=== PATIENT | male | born 1945 | race Caucasian/White ===

== ENCOUNTER 2018-10-07 02:46 | Day surgery (SDC) | payer OTHER ==
[2018-10-06 14:19] LABS: PLATELET COUNT, AUTOMATED 265 K/uL (150-450)
[~2018-10-07] VITALS: Ht 172.7 cm; Wt 82.1 kg
[~2018-10-07 02:46] MED LIST: HYDR12.558 PO
[2018-10-07 06:25] VITALS: BP 131/82
[2018-10-07] MEDS ORDERED: FAMOTIDINE 20 MG TAB PO ONE (06:45)
[2018-10-07] MEDS ORDERED: LIDOCAINE/SOD BICARB 8.4% SYR ID ONE (06:45)
[2018-10-07] MEDS ORDERED: ceFAZolin(*) 2GM/D5W 50ML 50 ML IVPB ONE (06:45)
[2018-10-07] MEDS ORDERED: NORMOSOL R SOLN(*) 1000 ML BAG 1,000 ML IV PRN (06:45)
[2018-10-07] MEDS ORDERED: MIDAZOLAM 2 MG/2 ML VIAL IVP PRN (06:45)
[2018-10-07] MEDS ORDERED: DEXAMETHASONE SOD PHOS 10MG/ML ONE (07:32)
[2018-10-07] MEDS ORDERED: ROCURONIUM BROM 10 MG/ML 10 ML ONE (07:32)
[2018-10-07] MEDS ORDERED: LIDOCAINE MPF 1% 5 ML VIAL ONE (07:32)
[2018-10-07] MEDS ORDERED: PROPOFOL EMUL(*) 10MG/ML 20 ML 20 ML ONE (07:32)
[2018-10-07] MEDS ORDERED: ONDANSETRON 4 MG/2 ML VIAL ONE (07:32)
[2018-10-07] MEDS ORDERED: KETAMINE HCL-NS 50 MG/5 ML SYR ONE (07:35)
[2018-10-07] MEDS ORDERED: fentaNYL CITR 100 MCG/2 ML AMP ONE (07:35)
[2018-10-07] MEDS ORDERED: MIDAZOLAM 2 MG/2 ML VIAL ONE (07:35)
[2018-10-07] MEDS ORDERED: LIDOCAINE MPF 4% 200MG/5ML AMP ONE (07:35)
[2018-10-07] MEDS ORDERED: LIDOCAINE 2% VISC SLN 15ML UDC ONE (07:35)
[2018-10-07] MEDS ORDERED: LIDOCAINE MPF 4% 200MG/5ML AMP INH ONE (07:45)
[2018-10-07] MEDS ORDERED: ROPIVACAINE 0.5% 20 ML VIAL ONE (07:47)
[2018-10-07] MEDS ORDERED: HEPARIN SOD LCK FLSH 100 UN/ML ONE (07:47)
[2018-10-07] MEDS ORDERED: NS(*) 0.9% 10 ML VIAL 20 ML ONE (07:47)
[2018-10-07] MEDS ORDERED: NS(*) 0.9% 100 ML BAG 100 ML ONE (08:34)
--- NOTE | 2018-10-07 10:05 | Short(Outpt) Discharge Summary ---
Discharge Summary Reason for Hosp/Final Diag: (1) MALIGNANT NEOPLASM OF TONSIL, UNSPECIFIED Status: Chronic Hospital Course & Plan: Right IJ Power Port placement and PEG tube placement completed without problems. Departure Discharge to: Home, Self Care Discharge Instructions Home Meds No Active Prescriptions or Reported Meds Follow up Referrals: General Surgery - 10/19/18 @ Surgery, General with CASSIA COREAS MD You have a follow up appointment scheduled with Dr. Coreas on 10/19/18, at 4:00pm. Diet: Regular Activity: As Tolerated Special Instructions: You may remove the dressings from the port placement sites and the feeding tube site and shower starting on 10/09/18. After showering, place a new drain dressing around the feeding tube but you can leave the incisions on the port placement sites open to air but leave the steristrips in place until they fall off on their own. Do not immerse the incisions for 2 weeks. The feeding tube needs to be flushed with 60mL of water once a day to keep it from getting clogged. You can use the pain medications prescribed after your throat surgery if you need anything for pain. Take an over the counter stool softener such as colace, twice each day, until your bowel movements are normal. CASSIA COREAS MD Oct 07, 2018 10:05
--- NOTE | 2018-10-07 10:11 | Post Operative Progress Note ---
Post Operative Progress Note Date: Oct 07, 2018 Time: 10:05 Surgeon: Ishmael Dictation number: [id number] Anesthesia: GETA by Dr. Price Pre-Op Diagnosis: Oral cancer Post-Op Diagnosis: TRISTEN Findings: None Procedure(s): Right IJ Power Port placement PEG tube placement Specimen Removed:(May be N/A): None Complications: None Fluids: See anesthesia record Estimated Blood Loss: Minimal Date OP Note Dictated: Oct 07, 2018 Time OP Note Dictated: 10:06 CASSIA COREAS MD Oct 07, 2018 10:11
[2018-10-07 10:30] VITALS: BP 116/67
--- NOTE | 2018-10-07 10:43 | RADIOLOGY IMAGING REPORT ---
FACILITY: [facility] PATIENT NAME: Dat Bhatti : 1945 MR: [id number] V: [id number] EXAM DATE: [id number] ORDERING PHYSICIAN: CASSIA COREAS TECHNOLOGIST: Location: [facility] Patient: Dat Bhatti : 1945 Visit/Account:[id number] Date of Sevice: 10/07/2018 Exam type: CHEST SINGLE AP History: Right IJ Power port placement, PEG placement Comparison: None. Findings: There is a right IJ implanted port the distal tip projects over the caval atrial junction. No eviden ce of pneumothorax Coarse linear stranding left lung base may represent atelectasis versus scarring. Mildly prominent central pulmonary arteries are present. There is mild interstitial prominence whi ch could be related to a poor inspiratory effort. Cardiac silhouette appears normal in size IMPRESSION: 1. Right IJ implanted port distal tip projects over the cavoatrial junction. No evidence of pneumot horax Coarse linear stranding the left lung base may represent atelectasis versus scarring Report Dictated By: Gwen James MD at 10/07/2018 10:35 AM Report E-Signed By: Gwen James MD at 10/07/2018 10:39 AM WSN:[email or web address]
[2018-10-07 11:00] VITALS: BP 119/79
--- NOTE | 2018-10-07 11:06 | OPERATIVE REPORT 1 ---
EVENT DATE: October 07, 2018 SURGEON: Jose Quiñones MD ANESTHESIOLOGIST: Oumar Price MD ANESTHESIA: General endotracheal. PREOPERATIVE DIAGNOSIS Oral cancer. POSTOPERATIVE DIAGNOSIS Oral cancer. PROCEDURE PERFORMED 1. Right IGA PowerPort placement. 2. PEG tube placement. COMPLICATIONS None. CONDITION Stable. ESTIMATED BLOOD LOSS Minimal. INDICATIONS This is a 73-year-old gentleman who was recently found to have an oral cancer, I think arising from his left tonsil and possibly the base of his tongue. He had debulking procedure in [place] and has recently seen our oncologist here who would like to start him on radiation and chemotherapy, and have asked for a PowerPort and PEG tube to be placed. DESCRIPTION OF PROCEDURE The patient was brought to the operating room and placed supine on the operating table. General endotracheal anesthesia was administered and his right chest, shoulder, and neck were prepped and draped in sterile fashion. A timeout was completed. With the patient in Trendelenburg, we used the ultrasound to identify the internal jugular vein. I accessed the vein with the needle with no problem and threaded the wire through the needle. Initially, the wire wanted to head cephalad but under fluoroscopic guidance, I was able to withdraw it and then advance it into the SVC. I removed the needle and once I confirmed the wire was in the appropriate position, I anesthetized the skin of the neck and the right infraclavicular skin with 0.5% Ropivacaine plain and then made a stab incision in the neck where the wire entered the skin and I made a transverse incision to accommodate the port. I dissected through the dermis and subcutaneous fat and then caudad to the incision creating a nice pocket for the port and made sure this was hemostatic. I used a tunneler and dragged the catheter from the pocket up to the stab incision in the neck and then with the patient in Trendelenburg, threaded the dilator and sheath over the wire, removed the dilator and wire and threaded the catheter through the sheath and removed the sheath. Next, under fluoroscopic guidance, I backed the catheter back so the tip was in the SVC just below the right atrium. I cut the catheter length, placed the port on the catheter, locked it into place with the locking cuff and then sutured the port to the muscle fascia with 2-0 Nylon at the corners. I then aspirated blood and flushed the catheter and port with 10 mm of normal saline and then I flushed it with 5 mL. of 100 units/mL of Heparinated saline. It aspirated and flushed with no problems. I took more C-arm images to confirm good position and then I closed the stab incision in the neck with a single 3-0 Chromic suture and then closed the infraclavicular incision with interrupted 3-0 Vicryl deep dermal sutures and 4-0 Monocryl running subcuticular suture. The skin was cleaned, dried, and Steri-Strips were applied, followed by sterile, surgical dressings. I then took the drapes down and covered this area with a 1010 drape to prevent any soilage during the net part of the procedure. The endoscope was then set up and tested to assure it was completely functional. I inserted it into the patient's mouth, I advanced into the esophagus without any problems and then I grossly inspected the stomach and duodenum as well as the esophagus. He does have evidence of gastritis. No other abnormalities were found. I transilluminated the abdominal wall, through the stomach with the scope and identified a good location for the PEG tube. I then anesthetized the skin here and then used the access needle and catheter and penetrated the stomach under direct visualization. I removed the needle and then threaded the wire through the angiocatheter and then pulled it from the stomach, though the patient's mouth with the loop. I then attached the pole type Ponsky tube to the wire, and made an incision in the skin in the abdomen where the wire exited, and then pulled the feeding tube through the patient's mouth and through the stomach wall. I then put the scope back in and then positioned the mushroom cap against the stomach wall but so there was no pressure on the wall. I then cut the tube to length and placed the flange and the clamp on the catheter followed by the port. I then sewed the flange down to the skin with 2-0 Silk sutures. I then placed a drain dressing around this which was taped into placed. The patient tolerated both of these procedures without any apparent problems. He was awakened and extubated in the operating room and transferred to the recovery room in stable condition. BLADIMIR
[2018-10-07 11:30] VITALS: BP 124/83
[2018-10-07 12:04] VITALS: BP 135/86
[2018-10-07 12:07] VITALS: BP 113/92
--- NOTE | 2018-10-07 13:42 | RADIOLOGY IMAGING REPORT ---
FACILITY: [facility] PATIENT NAME: Dat Bhatti : 1945 MR: [id number] V: [id number] EXAM DATE: ORDERING PHYSICIAN: CASSIA COREAS TECHNOLOGIST: Location: [facility] Patient: Dat Bhatti : 1945 Visit/Account:[id number] Date of Sevice: 10/07/2018 OR fluoroscopy films: Chest History: Port placement Comparison:None Findings: Fluoroscopy and imaging was provided for Dr. Coreas. 35.3 seconds of fluoroscopy time was utilized for a DAP of 1.26 Gycm2. 2 images of the chest are archived to PACS which demonstrate chest port placement in progress. Catheter tip projects over the distal cavoatrial junction.. IMPRESSION: Fluoroscopy and imaging provided for Dr. Coreas please see his report for details. Report Dictated By: Shayla Cline MD at 10/07/2018 12:18 PM Report E-Signed By: Shayla Cline MD at 10/07/2018 1:38 PM WSN:[id number]
== END 2018-10-07 10:30 | disposition home or self-care (01) ==
LOC: OR 02:46
PROVIDERS: ATTEND Surgery
DX: C06.9 Malignant neoplasm of mouth, unspecified (principal)
CPT/HCPCS: 36415; 36561; 43246; 71045; 77001; 85025; 94640; 94667; C1788; J1100; J2001; J2250; J2405; J2704; J2795; J3010; J3490; J7050; J0690

== ENCOUNTER → 2018-10-08 | Outpatient (CLI) | payer OTHER | LOC: AUD 10-06 13:42 | PROVIDERS: ATTEND Internal Medicine Medical Oncology | DX: C09.9 Malignant neoplasm of tonsil, unspecified (principal) | CPT/HCPCS: 92552 ==

== ENCOUNTER 2018-12-03 09:00 | Outpatient (RCR) | payer OTHER ==
--- NOTE | 2018-09-28 20:43 | TOBIN CONSULT ---
EVENT DATE: September 28, 2018 CHIEF COMPLAINT Patient is here for oncology assessment and treatment recommendations. 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 There was additional tumor appreciated on PET CT scan extending from the right tonsil fossa along the right base of tongue, measuring 1.7 cm with a standardized uptake value of 12.3, however, metabolic lymph nodes at level 2, level 3, level 4, and level 5. Appears to be two supraclavicular fossa lymph nodes as well at the right neck base. 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 Stage T4a N3b M0 (CAROL). HISTORY This is a 73-year-old gentleman who [place] [facility] [place] for newly diagnosed squamous cell carcinoma of the oropharynx. Patient is seen with his spouse today. Patient is referred from to me by Lorena Jones and Dr. Alex Vaz. Patient has significant short-term memory deficit. This appears to be related to PTSD. He relates [place] exposure in the past. He is a nonsmoker. According to the patient and his spouse, he presented to his primary care providers with a palpable lymph node at the base of the right neck posteriorly. This was nontender. The patient subsequently underwent diagnostic evaluation. He initially had a CT scan of the neck on 09/07/18. That study revealed a 3.1 x 2.2 cm mass in the posterior oropharynx with multiple enlarged lymph nodes along the right neck up to 1.1 cm. He also had a right intra-parotid lymph node. Patient was referred to Dr. Vaz. I do not have the office notes; however, according to the patient, he was advised to have biopsy of the right tonsil, and the mass was subsequently removed on 09/10/18. Mass was measuring 3.5 cm on histologic evaluation with extension to deep margins. No LVI or perineural invasion. The procedure was performed approximately four weeks ago, and the patient is recovering nicely on schedule. As part of the diagnostic evaluation, the patient also had a PET CT scan performed in [place] on 09/21/18. The study reveals a hypermetabolic mass in right base of tongue measuring 1.7 cm with an SUV of 12.3. There is a hypermetabolic right intra-parotid lymph node with an SUV of 7.6. There are additional lymph nodes noted along the jugular chain both anteriorly and posteriorly, and the lymph nodes extend to the right supraclavicular fossa. Left neck was unremarkable. Lungs and mediastinum were negative for uptake. Patient is seen for initial assessment. MEDICATIONS AND ALLERGIES See EMR. PAST MEDICAL HISTORY 1. Squamous cell carcinoma of the oropharynx. 2. PTSD. 3. Hyperlipidemia. SOCIAL HISTORY Patient is , seen with spouse, Adelaida Rocha. 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 Retired about three years ago. Nonsmoker as stated above. FAMILY HISTORY Notable for a sister with lung carcinoma. She is doing well at this time. Mother had CVA. He has a brother and a son. The latter is age 47. REVIEW OF SYSTEMS Patient denies any significant weight loss. He is presently not experiencing any dysphagia. Denies any ear pain. No respiratory complaints. No GI complaints. No focal neurologic deficits. He is aware of the fact that he has short-term memory loss. PHYSICAL EXAMINATION GENERAL: Pleasant, 73-year-old male with medium build. VITALS: BP 129/83, pulse 55, respirations 16, O2 sat 97%. Weight 186. HEENT: Notable for pale mucosa over the base of the right tonsil from recent surgery. Good dentition. Reasonably good moisture. No visible lesions of the oral tongue. There is an exophytic mass that could be identified on direct visualization of the posterior oropharynx on the right side. Fiberoptic exam will be listed at the end of the dictation to describe this further. NECK: Notable for palpable mobile, 1 cm lymph node at the posterior triangle at the base of the neck. There is palpable fullness along the sternocleidomastoid muscle on the right neck, but no dominant mass towards the surface. Left neck exam was unremarkable. LUNGS: Clear bilaterally. HEART: Sounds regular. No audible murmur. ABDOMEN: Soft. No gross organomegaly, mass, or tenderness. NEUROLOGIC: Grossly intact with exception of significant memory deficit. PROCEDURE Fiberoptic exam was performed with topical anesthesia of the right posterior nasopharynx. The nasopharynx was unremarkable. The posterior oropharynx was notable for visualization of a large exophytic mass which visibly measures approximately 2.5 cm x 1.5 x 1.5 cm. This appears along the base of the tongue and the lateral oropharynx. I suspect this is direct extension of the primary tumor mass, although secondary tumor would also be a consideration. The tumor mass extends to base of the epiglottis and ventricle on the right side. The epiglottis itself was smooth, and vocal cords moved symmetrically. Air column was open widely. Digital photographs placed in chart for reference. 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 He appeared to have a dominant mass in the right tonsil which was confirmed to be squamous cell carcinoma 3.[address] scan and visualization, he has a secondary tumor mass which extends along the right base of tongue. The clinical size is estimated in vertical length at approximately 2.5 cm x 1.5 x 1.5 cm with a multinodular appearance. There appears to be numerous lymph nodes throughout the right anterior neck at levels 2 through 5 with two visible lymph nodes in the supraclavicular fossa which would represent N3 disease. He has a fairly large palpable lymph node in the right posterior neck which will be monitored for therapeutic response during his radiation and chemotherapy program. RECOMMENDATIONS At this time, I would recommend external beam radiotherapy with IMRT with progressive field reductions to approximately 72 to 76 Gy. I would proceed at 1.8 Gy per fraction with field reductions at 50 Gy and 68 Gy. I reviewed the initial imaging with the patient and his spouse on the monitor. I discussed the natural history of this carcinoma, which is locally aggressive. The patient has an appointment to see Dr. Jordan Thursday of this week for medical oncology recommendations. We have had reasonably good success with tumor control of the larger lesions with combined radiation therapy and cisplatin. Expected toxicities include acute mucosal reaction, xerostomia, altered taste, and temporary skin reaction. Late side effects may include thyroid suppression which requires supplementation. Patients may require IV hydration towards the second half of the treatment program. Nutrition will be monitored closely throughout the program. I would like to proceed with CT simulation and fabrication of an Aquaplast mask within the next five days. I will request a PET CT disk from [place] to fuse our treatment planning images for accurate targeting. Treatments will proceed forward in approximately 10 to 14 days. Overall, tumor control for HPV-mediated squamous cell carcinoma is typically on the order of 80% to 85% at two to three years. The tumors, fortunately, may respond quickly to therapy. All questions were answered to the patient's and his spouse's satisfaction today, and signed consent obtained to proceed with treatment. Thank you for the referral and confidence in our Cancer Center. BLADIMIR
--- NOTE | 2018-10-11 14:03 | NUR ---
SW completed initial assessment.
--- NOTE | 2018-10-11 14:04 | NUR ---
SW will complete a Mini-cog (MoCA) at next meeting to get baseline cognitive assessment.
--- NOTE | 2018-10-11 14:06 | NUR ---
HADS scores: D-0, A-0. ( assisted patient with completion of form).
--- NOTE | 2018-11-04 16:05 | RADIOLOGY IMAGING REPORT ---
FACILITY: [facility] PATIENT NAME: Dat Bhatti : 1945 MR: [id number] V: [id number] EXAM DATE: ORDERING PHYSICIAN: DAMON THOMASON TECHNOLOGIST: [place] [facility] [place] Dat B[place] : 1945 Visit/Account:[id number] Date of Sevice: 11/04/2018 CT BRAIN WITH AND WITHOUT INDICATION: Tonsillar cancer, radiation therapy planning COMPARISON: None TECHNIQUE: Pre and postcontrast head CT performed with sagittal and coronal reformations. 75 mL Isov ue-370 injected. One of the following dose optimization techniques was utilized in the performance o f this exam: automated exposure control; adjustment of the mA and/or kV according to patient size; or use of iterative reconstruction technique. Specific details can be referenced in the facility's rad iology CT exam operational policy. FINDINGS: The basal cisterns, moreno-white differentiation and convexity sulci are maintained. No intracranial h emorrhage, hydrocephalus or midline shift. Normal orbital soft tissues. Mild to moderate patchy whi te matter hypoattenuation. Clear mastoid air cells, clear paranasal sinuses and normal osseous struc tures. No apparent intracranial pathologic enhancement. No apparent vascular abnormality. IMPRESSION: 1. Mild to moderate chronic small vessel ischemic change. 2. Otherwise normal head CT without and with contrast. Report Dictated By: Melchor Young MD at 11/04/2018 3:54 PM Report E-Signed By: Melchor Young MD at 11/04/2018 4:00 PM [id number]
--- NOTE | 2018-11-04 16:14 | RADIOLOGY IMAGING REPORT ---
FACILITY: [facility] PATIENT NAME: Dat Bhatti : 1945 MR: [id number] V: [id number] EXAM DATE: ORDERING PHYSICIAN: DAMON THOMASON TECHNOLOGIST: Location: [facility] Patient: Dat Bhatti : 1945 Visit/Account:[id number] Date of Sevice: 11/04/2018 CT SOFT TISSUE NECK W & W/O CON INDICATION: Tonsillar cancer, radiation therapy planning COMPARISON: None TECHNIQUE: Pre and postcontrast neck CT performed with sagittal and coronal reformations. 75 mL Isov ue-370 injected. One of the following dose optimization techniques was utilized in the performance o f this exam: automated exposure control; adjustment of the mA and/or kV according to patient size; or use of iterative reconstruction technique. Specific details can be referenced in the facility's rad iology CT exam operational policy. FINDINGS: Normal parotid and submandibular glands. Normal thyroid gland. No apparent tonsillar mass. Normal oral cavity, retropharyngeal, pharyngeal and laryngeal region sof t tissues. No enlarged or suspicious appearing neck lymph nodes. Normal orbital soft tissues. No apparent path ologic enhancement in the visualized intracranial compartment. Right chest wall port with catheter tip in the lower SVC is noted. A large portion of the chest was imaged. No enlarged lymph nodes seen in the chest. The visible lungs are clear. No osseous metastatic disease identified. Severe multilevel cervical spine disc space degeneration n oted. IMPRESSION: No apparent neck mass. No enlarged or suspicious appearing neck lymph nodes. Report Dictated By: Melchor Young MD at 11/04/2018 4:00 PM Report E-Signed By: Melchor Young MD at 11/04/2018 4:09 PM [id number]
[~2018-12-03 09:00] MED LIST changes: +FLUC100T39 PO; +IOPAMIDOL 76% 75 ML INFUS BTL 75 ML ONE
== END 2018-12-26 ==
LOC: RAON 09:00
PROVIDERS: ATTEND Radiology Radiation Oncology
DX: Z51.11 Encounter for antineoplastic chemotherapy (principal); C09.1 Malignant neoplasm of tonsillar pillar (anterior) (posterior); Z90.89 Acquired absence of other organs; Z77.098 Contact with and (suspected) exposure to other hazardous, chiefly nonmedicinal, chemicals; G31.84 Mild cognitive impairment of uncertain or unknown etiology; E78.5 Hyperlipidemia, unspecified
CPT/HCPCS: 70470; 70492; 77280; 77290; 77300; 77301; 77336; 77338; 77386; 99212; Q9967; 77334

== ENCOUNTER 2018-12-27 08:30 | Outpatient (RCR) | payer OTHER ==
[2018-09-29 16:05] VITALS: BP 120/79
--- NOTE | 2018-10-07 00:25 | ONCOLOGY HISTORY AND PHYSICAL ---
EVENT DATE: September 29, 2018 REFERRING PROVIDER Sai De Oliveira MD, Radiology Oncology. REASON FOR CONSULTATION Squamous cell carcinoma of the right tonsil, stage CAROL. CHIEF COMPLAINT Lump in right neck. HISTORY OF PRESENT ILLNESS Mr. Bhatti is here with his today. The patient is able to give some history, but history provided is regularly interrupted with discussion of several episodes, some traumatic, that occurred while he was in [place]. The patient does seem to rely fairly heavily on his for pertinent recent history. In any case, to review, he had presented about one month ago with a palpable lymph node in his right neck. He underwent a CT scan of the neck on September 07. This showed a 3.1 x 2.2 cm mass in the posterior oropharynx with multiple enlarged lymph nodes along the right neck, up to 1.1 cm. There was reportedly a right intraparotid lymph node, as well. The patient was seen in ENT by Dr. Vaz. He underwent tonsillectomy on September 10. Surgical pathology revealed a 3.5 cm primary with extension to the margins, but with no lymphovascular or perineural invasion. 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 Patient has recovered nicely from his surgery. He underwent a CT/PET scan in [place] on September 21. PET scan reveals a hypermetabolic mass in the right base of tongue measuring 1.7 cm with SUV of 12.3. There was a hypermetabolic right intraparotid lymph node with an SUV of 7.6. There were additional lymph nodes along the jugular chain anteriorly and posteriorly, and the lymph nodes extend to the right supraclavicular fossa. There were no pertinent findings in the left neck. There was no evidence of hypermetabolic metastatic disease. The patient has visited already with Dr. De Oliveira in Radiation Oncology. The plan is tentatively set for concurrent cisplatin and radiation therapy. PAST MEDICAL HISTORY 1. Squamous cell carcinoma of oropharynx, as above. 2. Reported PTSD. 3. Memory loss, as evidenced by today's visit, but no dementia diagnosis as yet to my knowledge. 4. Hyperlipidemia. CURRENT MEDICATIONS Reviewed per the [employer] record. ALLERGIES No known drug allergies. SOCIAL HISTORY The patient is . He is retired. He is a nonsmoker. FAMILY HISTORY There is a reported history of lung cancer in his sister. PHYSICAL EXAMINATION VITAL SIGNS: Temperature is 97.3, blood pressure 120/79, heart rate 60, respirations 16, oxygen saturation 98% on room air. Weight is 83.8 kg. GENERAL: Patient is alert and oriented x3, in no apparent distress, sitting in the exam room chair. He is interactive and pleasant. Short-term memory is impaired. HEENT: Anicteric sclerae. NEUROLOGIC: Grossly nonfocal. His gait is normal. Again, short-term memory impaired, with frequent references to his time during the [place]. EXTREMITIES: No edema, clubbing, or cyanosis. There is no erythema or tenderness to palpation. LABORATORY STUDIES Reviewed per the [facility]. IMAGING AND PATHOLOGY Please see history of present illness. ASSESSMENT AND PLAN Stage CAROL HPV-positive squamous cell carcinoma of oropharynx. I had a good visit with Mr. Bhatti and his today. The visit was somewhat difficult in terms of gleaning information, due to the patient's memory issues. Much of his history came from his . It does seem that physically he is doing quite well, and he has a substantial reserve to tolerate proposed therapy with definitive chemoradiation. We spent a good deal of time today discussing the process of undergoing treatment with cisplatin and radiation therapy. We discussed dosing of ciprofloxacin every three weeks versus weekly. Given the extent of disease, I would favor every three weeks, but given HPV positivity, weekly cisplatin would not be unreasonable. As discussed, I would like to review his situation further with Dr. De Oliveira. My main concern at this point is the patient's memory loss and his potential problems coping with toxicity that go along with this treatment, as well as his capacity to report symptoms and side effects appropriately so that they can be addressed in a timely manner. This was reviewed extensively with the patient and his today. I would want him to undergo initial dental evaluation as well as consider audiology appointment to evaluate his hearing. At this point, it does not seem like there are plans in place for feeding tube placement, but again, I am concerned about his memory issues, and I would wonder whether this could be helpful. We will make initial plans for him to begin concurrent chemotherapy with his radiation, and definitive plans will be put in place after I review his situation with Dr. De Oliveira. He will need substantial support as he moves through treatment, and he will need regular visits here. I spent a total of one hour of time face to face with the patient and his today, and 55 minutes of this was spent in direct counseling and coordination of care. BLADIMIR
[2018-10-11 08:45] VITALS: BP 115/84
[2018-10-11] MEDS: DEXAMETHASONE SOD(*) 10MG/ML 10 MG in NS(*) 0.9% 50 ML BAG 50 ML IVP PRN (09:22)
[2018-10-11] MEDS: LIDOCAINE/SOD BICARB 8.4% SYR ID PRN (09:22)
[2018-10-11] MEDS: NS(*) 0.9% 1000 ML BAG 1,000 ML IV PRN (09:23)
[2018-10-11] MEDS: PALONOSETRON 0.25 MG/5 ML VIAL IVP PRN (09:23)
[2018-10-11] MEDS: FOSAPREPITANT DIM 150 MG/5 ML 150 MG in NS(*) 0.9% 250 ML BAG 245 ML IVPB PRN (09:40)
[2018-10-11] MEDS: CISPLATIN IVPB PRN (10:22)
[2018-10-11] MEDS: NS 0.9% IVPB PRN (10:22)
[2018-10-11] MEDS: MAGNESIUM SULFATE IV PRN (11:31)
[2018-10-11] MEDS: KCL IV PRN (11:31)
[2018-10-11] MEDS: [UNRECOGNIZED DRUG - OTHER] IV PRN (11:31)
--- NOTE | 2018-10-11 18:16 | Medical Nutrition Therapy ---
Nutrition Anthropometrics Height (Inches): 66.16 Height (Calculated Centimeters: 168.0464 Weight (Pounds): 184 (pt states his wt has been stable ~184 lbs is his usual wt) BMI: 29.6 Nutritional Diagnosis Nutritional Risk Acuity 2: Head/Neck/GI Cancer (recently placed PEG Tube) Nutritional Acuity: 2-Moderate Adjusted Energy Requirement Re: 2800 Protein Requirement: 92 Fluid Requirement: 2100 Nutrition Intervention: Cont diet as ordered, Encourage intake, Nutrition support Nutritional Needs Comment: Patient has a PEG tube - currently not using, it may be used as treatment progresses and if PO intake decreases to help meet Prince's nutrition needs Tubefeeding recommendations will be provided as needed Nutritional Education Nutrition Education Topic: Other (provided a handout on eating during cancer treatment and information on tubefeeding ) Learning Readiness: Interested Teaching Methods: Discussion, Handout Response to Teaching: Verbalize understanding Teaching Recipient: Patient, Significant Other (Adelaida his was present) Nutrition Counseling: Reviewed handout on Eating during Cancer Treatment, discussed potential nutrition impact symptoms and encouraged patient to review information if he is experiencing any of the symptoms. Nutrition Monitoring & Eval Nutrition Goals: Eat 90-100% Meal, Drink > 2 liters/day Nutritional Goals Comment: Goal - po intake as tolerated, wt maintenance, if unable to meet nutrition needs, Tubefeeding will be initiated. Nutrition Monitoring: I encouraged Prince and Adelaida to track his po intake and I will review with them next week to determine if PO intake is adequate RD Patient Assessment Time: [address] Assessment Type: RD Education Patient Nutrition Acuity: 2-Moderate Nutritional Comment: I encouraged patient to call or let RN know if he or his would like to discuss any nutrition issues with me. ARABELLA MAYA RDN, DESIRAE Oct 11, 2018 18:16
--- NOTE | 2018-10-12 02:47 | ONCOLOGY FOLLOW UP NOTE ---
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 HISTORY OF PRESENT ILLNESS Patient is a 73-year-old male who presents to begin concurrent chemoradiation with cisplatin. Overall, he feels he is doing well. Much of his history and symptom review is obtained from his . He had a PEG tube inserted along with Port-A-Cath, and is still somewhat sore from that, using hydrocodone on a p.r.n. basis. He believes he has been eating well and denies any issues with dysphagia. He and his had chemotherapy teaching regarding cisplatin on 10/08/18 and feel ready for today's treatment. ONCOLOGY HISTORY Patient presented in August 2018 with a palpable lymph node in his right neck. CT scan on 09/07/18 showed a 3.1 x 2.2 cm mass in the posterior oropharynx with multiple enlarged lymph nodes along the right neck, up to 1.1 cm. There was reportedly a right intraparotid lymph node as well. Underwent tonsillectomy on 09/10/18. Surgical pathology revealed a 3.5 cm primary with extension to the margin, but no lymphovascular or perineural invasion. 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 PET/CT scan in [place] on 09/21/18 showed the hypermetabolic mass in the right base of the tongue measuring 1.7 cm with an SUV of 12.3. There was a hypermetabolic right intraparotid lymph node with an SUV of 7.6, and additional lymph nodes along the jugular chain anteriorly and posteriorly, extending into the right supraclavicular fossa. No evidence of hypermetabolic metastatic disease. Began concurrent chemoradiation on 10/11/18. PAST MEDICAL HISTORY 1. Squamous cell carcinoma of the oropharynx, September 2018. 2. 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 3. Hyperlipidemia. MEDICATIONS 1. Dexamethasone 2. Compazine 3. Lorazepam 4. Zofran ALLERGIES No known drug allergies. FAMILY HISTORY Lung cancer in his sister. No other malignancies. SOCIAL HISTORY Patient is . He has one son. He is retired. He does not smoke. REVIEW OF SYSTEMS A 12-point review of systems is performed and is negative except as stated above. PHYSICAL EXAMINATION VITAL SIGNS: Weight 83.7 kg, BP 115/84, P 66, R 16, temp 98.4, O2 sat 92%. GENERAL: Patient is a well-developed, well-nourished male in no acute distress. HEAD: Normocephalic, atraumatic. EYES: Sclerae anicteric. MOUTH: Moist mucous membranes. Minimal erythema noted on right posterior pharynx. NECK: Supple. Palpable adenopathy noted in the right neck, the largest ~1 cm. LUNGS: Clear bilaterally. CARDIOVASCULAR: Heart rate regular, 66 per minute, without murmur, S3 or S4. ABDOMEN: Soft, nontender, with active bowel sounds. G tube in place. EXTREMITIES: No edema. NEUROLOGIC: Nonfocal. LABS CBC today reveals a WBC of 9.2, hemoglobin 14.8, hematocrit 43.2, platelets 256,000. CMP was within normal limits. Albumin noted to be slightly low at 3.6. IMPRESSION AND PLAN The patient is a 73-year-old male recently diagnosed with stage CAROL HPV-positive squamous cell carcinoma of the oropharynx; began concurrent chemoradiation with weekly cisplatin on 10/11/18. 1. Squamous cell carcinoma of the oropharynx. Cycle #1 of cisplatin. They feel ready for today's treatment. We reviewed his antiemetics, and he will be monitored closely. 2. Radiation. Begin daily radiation today. 3. Nutrition. Albumin is slightly low at 3.6. He does have a gastrostomy tube in place. We discussed the importance of soft high-protein foods. He will meet with the agriculture scientist today. 4. Follow up daily for radiation. 5. Follow up in one week for cycle #2 of treatment. MTDD
[2018-10-18 08:59] VITALS: BP 119/76
[2018-10-18] MEDS: LIDOCAINE/SOD BICARB 8.4% SYR ID PRN (09:24)
[2018-10-18] MEDS: NS(*) 0.9% 500 ML BAG 500 ML IV PRN (09:24)
[2018-10-18] MEDS: NS(*) 0.9% 1000 ML BAG 1,000 ML IV PRN (09:24)
[2018-10-18] MEDS: DEXAMETHASONE SOD(*) 10MG/ML 10 MG in NS(*) 0.9% 50 ML BAG 50 ML IVP PRN (09:59)
[2018-10-18] MEDS: PALONOSETRON 0.25 MG/5 ML VIAL IVP PRN (09:59)
[2018-10-18] MEDS: FOSAPREPITANT DIM 150 MG/5 ML 150 MG in NS(*) 0.9% 250 ML BAG 245 ML IVPB PRN (10:32)
[2018-10-18] MEDS: CISPLATIN IVPB PRN (11:17)
[2018-10-18] MEDS: NS 0.9% IVPB PRN (11:17)
[2018-10-18] MEDS: HEPARIN FLSH (PORT) 500 UN/5ML IVP PRN (12:18)
[2018-10-18] MEDS: MAGNESIUM SULFATE IV PRN (12:19)
[2018-10-18] MEDS: [UNRECOGNIZED DRUG - OTHER] IV PRN (12:19)
[2018-10-18] MEDS: KCL IV PRN (12:19)
[2018-10-18 14:27] VITALS: BP 117/75
--- NOTE | 2018-10-19 07:49 | ONCOLOGY FOLLOW UP NOTE ---
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 HISTORY OF PRESENT ILLNESS Patient is a 73-year-old male who is seen today for consideration of cycle #2 of weekly cisplatin. He continues on daily radiation, which he is tolerating fairly well. His weight is stable. He is having no difficulty swallowing and his feels he is overall improved from recent tonsillectomy. He is no longer using pain medications. He denies any issues with nausea, vomiting, diarrhea or constipation. ONCOLOGY HISTORY Patient presented in August 2018 with a palpable lymph node in his right neck. CT scan on 09/07/18 showed a 3.1 x 2.2 cm mass in the posterior oropharynx with multiple enlarged lymph nodes along the right neck, up to 1.1 cm. There was reportedly a right intraparotid lymph node as well. Underwent tonsillectomy on 09/10/18. Surgical pathology revealed a 3.5 cm primary with extension to the margin, but no lymphovascular or perineural invasion. 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 PET/CT scan in [place] on 09/21/18 showed the hypermetabolic mass in the right base of the tongue measuring 1.7 cm with an SUV of 12.3. There was a hypermetabolic right intraparotid lymph node with an SUV of 7.6, and additional lymph nodes along the jugular chain anteriorly and posteriorly, extending into the right supraclavicular fossa. No evidence of hypermetabolic metastatic disease. Began concurrent chemoradiation on 10/11/18. PAST MEDICAL HISTORY 1. Squamous cell carcinoma of the oropharynx, September 2018, status post right tonsillectomy. 2. 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 3. Hyperlipidemia. MEDICATIONS 1. Dexamethasone 2. Compazine 3. Lorazepam 4. Zofran ALLERGIES No known drug allergies. FAMILY HISTORY Lung cancer in his sister. No other malignancies. SOCIAL HISTORY Patient is . He has one son. He is retired. He does not smoke. REVIEW OF SYSTEMS A 12-point review of systems is performed and is negative except as stated above. PHYSICAL EXAMINATION VITAL SIGNS: Weight 83.1 kg, BP 119/76, P 68, R 16, temp 97.2, O2 sat 93%. GENERAL: Patient is a well-developed, well-nourished male in no acute distress. HEAD: Normocephalic, atraumatic. EYES: Sclerae anicteric. MOUTH: Moist mucous membranes with minimal erythema noted on posterior pharynx. NECK: Supple. Palpable adenopathy noted in the right posterior cervical nodes, the largest approximately 1 cm. Also noted is one left posterior cervical node, approximately 0.5 cm. LUNGS: Clear bilaterally. CARDIOVASCULAR: Heart rate regular, 68 per minute, without murmur, S3 or S4. ABDOMEN: Soft, nontender with active bowel sounds. G-tube in place with minimal erythema surrounding the tubes. EXTREMITIES: No edema. NEUROLOGIC: Nonfocal. LABS CBC today reveals a WBC of 10.7, hemoglobin 15.4, hematocrit 44.9, platelets 314,000. CMP is within normal limits. 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 Began concurrent chemoradiation with weekly cisplatin on 10/11/18. 1. Squamous cell carcinoma of the oropharynx. Cycle #2 of cisplatin. He has tolerated his first treatment well. 2. Radiation. Continue daily radiation. No evidence of skin breakdown at this time. 3. Nutrition. Albumin today has improved to 3.8. He is eating well and having no issues with dysphagia at this time. He has met with our mammalogist. 4. Hydration. I emphasized the need for continued hydration. His mouth is slightly dry now but I suspect this will worsen over time. 5. Follow up in one week for cycle #3 of treatment. MTDD
[2018-10-27 08:45] VITALS: BP 122/79
[2018-10-27] MEDS: LIDOCAINE/SOD BICARB 8.4% SYR ID PRN (09:20)
[2018-10-27] MEDS: NS(*) 0.9% 1000 ML BAG 1,000 ML IV PRN (09:21)
[2018-10-27 09:30] LABS: PLATELET COUNT, AUTOMATED 223 K/uL (150-450)
[2018-10-27] MEDS: PALONOSETRON 0.25 MG/5 ML VIAL IVP PRN (10:08)
[2018-10-27] MEDS: DEXAMETHASONE SOD(*) 10MG/ML 10 MG in NS(*) 0.9% 50 ML BAG 50 ML IVP PRN (10:08)
[2018-10-27] MEDS: FOSAPREPITANT DIM 150 MG/5 ML 150 MG in NS(*) 0.9% 250 ML BAG 245 ML IVPB PRN (10:30)
[2018-10-27] MEDS: CISPLATIN IVPB PRN (11:10)
[2018-10-27] MEDS: NS 0.9% IVPB PRN (11:10)
[2018-10-27] MEDS: KCL IVPB PRN (12:17)
[2018-10-27] MEDS: MAGNESIUM SU IVPB PRN (12:17)
[2018-10-27] MEDS: [UNRECOGNIZED DRUG - OTHER] IVPB PRN (12:17)
--- NOTE | 2018-10-27 13:30 | ONCOLOGY FOLLOW UP NOTE ---
EVENT DATE: October 27, 2018 REASON FOR FOLLOWUP Squamous cell carcinoma of tonsil. INTERIM HISTORY Prince returns to the clinic for a followup visit today. He is accompanied by his . He is currently receiving premedications for cycle 3 of weekly cisplatin. He reports that things have been going pretty well, all things considered. Nausea has been well controlled. He denies fever. He has had no problems swallowing. He has not had to use his feeding tube yet. He does report some dry mouth. He reports no shortness of breath, chest pain or cough. He has had no changes in his bowel or bladder habits. He and his state that they have not yet had teaching for his feeding tube. ONCOLOGY HISTORY Squamous cell carcinoma of right tonsil. a. August 2018: Patient presents with palpable lymph node in right neck. b. September 07 2018: CT scan reveals a 3.1 x 2.2 cm mass in the posterior oropharynx with multiple enlarged lymph nodes along the right neck. c. September 10, 2018: Patient undergoes tonsillectomy. Surgical pathology reveals a 3.5 cm primary squamous cell carcinoma with extension to margin but no lymphovascular or perineural invasion. High risk HPV was positive. 3. September 21, 2018: CT PET scan shows hypermetabolic mass in the right base of tongue, measuring 1.7 cm, SUV 12.3. There was hypermetabolic right intraparotid lymph node with SUV of 7.5 and additional lymph nodes along the jugular chain anteriorly and posteriorly, extending to right supraclavicular fossa. There was no evidence of hypermetabolic metastatic disease. 3. October 11, 2018: Patient begins weekly cisplatin with concurrent radiation therapy after port and PEG placement. PAST MEDICAL HISTORY 1. Squamous cell carcinoma of oropharynx, as above. 2. Reported PTSD with memory loss. 3. Hyperlipidemia. CURRENT MEDICATIONS 1. Dexamethasone. 2. Compazine. 3. Ativan. 4. Zofran p.r.n. ALLERGIES No known drug allergies. SOCIAL HISTORY The patient is with one son. He is retired. He does not smoke. There is no known history of alcohol abuse or illicit drug use. FAMILY HISTORY There is a history of lung cancer in his sister. PHYSICAL EXAMINATION VITAL SIGNS; Temperature 98.2, blood pressure 122/79, heart rate 60, heart rate 16, oxygen saturation 94% on room air, weight 79.7 kilograms. GENERAL: Alert and oriented x3, no apparent distress, sitting in exam room chair. HEENT: Anicteric sclerae. NEUROLOGIC: Grossly nonfocal. ABDOMEN: PEG tube in place. EXTREMITIES; No edema, clubbing or cyanosis. There is no erythema or tenderness to palpation. LABORATORY STUDIES Reviewed per the [facility] record. ASSESSMENT AND PLAN Squamous cell carcinoma of right tonsil/base of tongue. I had a good visit with Prince and his today. Symptomatically, he continues to do quite well. He is here to receive his third weekly cycle of cisplatin. Today, treatment has been tolerable. He does have some dry mouth but he otherwise has no significant complaints with the exception of food tasting a little funny. He has no signs of symptoms to suggest infection. We spent time today discussing the plan moving forward, which will be for him to continue with weekly cisplatin and to complete radiation over the next several weeks. He does report that he has not had any teaching for his feeding tube and we will get this arranged as soon as possible, as the need for it may arise in the next few weeks. All questions answered today. He will have followup here in one week with Stacie Santiago, nurse practitioner. BLADIMIR
[2018-10-27 14:27] VITALS: BP 130/81
[2018-10-27] MEDS: HEPARIN FLSH (PORT) 500 UN/5ML IVP PRN (14:34)
[2018-11-03 08:41] VITALS: BP 131/82
[2018-11-03] MEDS: NS(*) 0.9% 1000 ML BAG 1,000 ML IV PRN (09:00)
[2018-11-03] MEDS: LIDOCAINE/SOD BICARB 8.4% SYR ID PRN (09:59)
[2018-11-03] MEDS: HEPARIN FLSH (PORT) 500 UN/5ML IVP PRN (10:00)
[2018-11-03] MEDS: DEXAMETHASONE SOD(*) 10MG/ML 10 MG in NS(*) 0.9% 50 ML BAG 50 ML IVP PRN (10:05)
[2018-11-03] MEDS: PALONOSETRON 0.25 MG/5 ML VIAL IVP PRN (10:06)
--- NOTE | 2018-11-03 10:11 | ONCOLOGY FOLLOW UP NOTE ---
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 HISTORY OF PRESENT ILLNESS Patient is a 73-year-old male who is seen today for consideration of cycle #4 of weekly cisplatin. He continues on daily radiation, which he is tolerating without issue. He does not have any taste buds, which has been frustrating, but he feels he is managing fairly well. He recently had thrush but this has now resolved after treatment with fluconazole. He was noted to also have a left cervical node and Dr. De Oliveira is planning to repeat the PET scan for treatment planning. However, this is still pending approval. Otherwise, he denies any new complaints. ONCOLOGY HISTORY Patient presented in August 2018 with a palpable lymph node in his right neck. CT scan on 09/07/18 showed a 3.1 x 2.2 cm mass in the posterior oropharynx with multiple enlarged lymph nodes along the right neck, up to 1.1 cm. There was reportedly a right intraparotid lymph node as well. Underwent tonsillectomy on 09/10/18. Surgical pathology revealed a 3.5 cm primary with extension to the margin, but no lymphovascular or perineural invasion. 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 PET/CT scan in [place] on 09/21/18 showed the hypermetabolic mass in the right base of the tongue measuring 1.7 cm with an SUV of 12.3. There was a hypermetabolic right intraparotid lymph node with an SUV of 7.6, and additional lymph nodes along the jugular chain anteriorly and posteriorly, extending into the right supraclavicular fossa. No evidence of hypermetabolic metastatic disease. Began concurrent chemoradiation on 10/11/18. PAST MEDICAL HISTORY 1. Squamous cell carcinoma of the oropharynx, September 2018, status post right tonsillectomy. 2. 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 3. Hyperlipidemia. MEDICATIONS 1. Dexamethasone 2. Compazine 3. Lorazepam 4. Zofran ALLERGIES No known drug allergies. FAMILY HISTORY Lung cancer in his sister. No other malignancies. SOCIAL HISTORY Patient is . He has one son. He is retired. He does not smoke. REVIEW OF SYSTEMS A 12-point review of systems is performed and is negative except as stated above. PHYSICAL EXAMINATION VITAL SIGNS: Weight 80.5 kg, BP 131/82, P 67, R 16, temp 97.4, O2 sat 93%. GENERAL: Patient is a well-developed, well-nourished male in no acute distress. HEAD: Normocephalic, atraumatic. EYES: Sclerae anicteric. MOUTH: Slightly dry mucous membranes with erythema noted in posterior pharynx and upper palate. No evidence of thrush. NECK: Supple. Ongoing palpable adenopathy in the right posterior cervical nodes but now smaller and more mobile. Left posterior cervical node is approximately the same size. LUNGS: Clear bilaterally. CARDIOVASCULAR: Heart rate regular, 67 per minute, without murmur, S3 or S4. ABDOMEN: Soft, nontender with active bowel sounds. G-tube in place. EXTREMITIES: No edema. NEUROLOGIC: Nonfocal. LABS CBC today reveals a WBC of 5.4, hemoglobin 14.5, hematocrit 43.0, platelets 187,000. CMP is within normal limits except for a mildly decreased sodium of 131. 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 Began concurrent chemoradiation with weekly cisplatin on October 11, 2018. 1. Squamous cell carcinoma of the oropharynx. Cycle #4 of cisplatin. He is tolerating this well. He has had no issues with nausea. 2. Radiation. Continue daily radiation. Mucous membranes are now slightly dry but no skin breakdown noted at this time. 3. Nutrition. Weight has decreased approximately 2.5 kg. Albumin is slightly lower at 3.5. He has lost his taste buds now, although is working hard to continue with high calorie, high protein foods. 4. Left cervical adenopathy. Dr. De Oliveira has ordered repeat PET so that this area can be included into the treatment plan. Unfortunately, this authorization is still pending. We continue to pursue this. 5. Follow up in one week for cycle #5 of treatment. MTDD
[2018-11-03] MEDS: FOSAPREPITANT DIM 150 MG/5 ML 150 MG in NS(*) 0.9% 250 ML BAG 245 ML IVPB PRN (10:33)
--- NOTE | 2018-11-03 11:04 | Medical Nutrition Therapy ---
Nutrition Anthropometrics Height (Inches): 66.16 Height (Calculated Centimeters: 168.0464 Weight (Pounds): 177 (pt states his usual wt is ~184 lbs) BMI: 28.5 Hx Weight Loss: Yes (patient has lost ~7lbs in 1 month ) Nutritional Education Nutrition Education Topic: Other (Tubefeeding administration instructions provided by Alejandra León RN, also discussed increasing calories/protein) Learning Readiness: Interested Teaching Methods: Discussion, Handout Response to Teaching: Verbalize understanding (Alejandra offered to provide hands on training once tubefeeding is initiated ) Teaching Recipient: Patient, Significant Other (, Adelaida present and will be administering the tubefeeding once started ) Nutrition Counseling: encouraged oral intake with making every bite nutritionally dense, selecting high calorie/protein foods recommended tracking calorie intake for 2 days to assess intake Nutrition Monitoring & Eval Nutrition Goals: Eat 75-100% Meal, Drink > 2 liters/day Nutritional Goals Comment: no further wt loss, tubefeeding will be initiated if needed Nutrition Follow-Up: Good Intake (a little less than usual ) Nutrition Monitoring: patient states food has no taste, he is not experiencing any other nutrition impact symptoms I will review 2 day calories count and re-weigh patient RD Patient Assessment Time: [address] Assessment Type: RD Education (Alejandra León RN provided tubefeeding education ) Patient Nutrition Acuity: 2-Moderate Nutritional Comment: I encouraged patient to call or let RN know if he or his would like to discuss any nutrition issues with me. ARABELLA MAYA RDN, DESIRAE Nov 03, 2018 11:04
[2018-11-03] MEDS: CISPLATIN IVPB PRN (11:10)
[2018-11-03] MEDS: NS 0.9% IVPB PRN (11:10)
[2018-11-03] MEDS: MAGNESIUM SU IVPB PRN (12:19)
[2018-11-03] MEDS: KCL IVPB PRN (12:19)
[2018-11-03] MEDS: [UNRECOGNIZED DRUG - OTHER] IVPB PRN (12:19)
--- NOTE | 2018-11-03 14:42 | NUR ---
Pt completed follow up HADS form. No change from initial. D-1, A-1.
--- NOTE | 2018-11-09 18:14 | Medical Nutrition Therapy ---
Nutrition Anthropometrics Height (Inches): 66.16 Height (Calculated Centimeters: 168.0464 Weight (Pounds): 173 (pt states his usual wt is ~184 lbs) BMI: 28.5 Hx Weight Loss: Yes (patient has lost ~11lbs in 1 month ) Nutritional Diagnosis Nutritional Risk Acuity 2: Head/Neck/GI Cancer (recently placed PEG Tube) Nutritional Acuity: 2-Moderate Adjusted Energy Requirement Re: 2800 Protein Requirement: 92 Fluid Requirement: 2100 Nutrition Intervention: Cont diet as ordered, Encourage intake, Nutrition support Nutritional Needs Comment: Patient has a PEG tube - currently not using, it may be used as treatment progresses and if PO intake decreases to help meet Prince's nutrition needs Tubefeeding recommendations will be provided as needed Nutritional Support Recommended Enteral / Parental: Tube Feeding Recommended Tube Feeding Formu: Jevity 1.5 Tube Feeding Supplement Streng: Full Recommended Feeding Route: PEG Recommended Bolus Feeding: start with 1 can as needed, increase as needed to meet patients john needs Nutritional Education Nutrition Education Topic: Other (high calories high protein food choices ) Learning Readiness: Interested Teaching Methods: Discussion, Handout Response to Teaching: Verbalize understanding Teaching Recipient: Patient, Family (Adelaida, his was present) Nutrition Counseling: Reviewed options to increase calories and protein, provided recipes and encouraged shakes and nutrition supplements Nutrition Monitoring & Eval Nutrition Goals: Eat 75-100% Meal, Eat 90-100% Meal Nutritional Goals Comment: Reviewed patients calorie count - patient states he is eating less due to the lack of taste and sensation of the food. Patient averaged about 2400 john/day. Patient needs at least 2800 cals/day. Patient and his would like to try and increase his intake by adding nutrition supps or shakes first. If patient continues to loss wt, they are agreeable to starting the tubefeeding to help meet his nutrition needs. RD Patient Assessment Time: [address] Assessment Type: RD Re-Assessment Patient Nutrition Acuity: 2-Moderate Follow Up Date: Nov 17, 2018 Nutritional Comment: I will review wt and determine if tubefeeding needs to be started. I encouraged patient to call or let RN know if he or his would like to discuss any nutrition issues with me. ARABELLA MAYA RDN, DESIRAE Nov 09, 2018 18:14
[2018-11-10 08:32] VITALS: BP 116/82
[2018-11-10] MEDS: LIDOCAINE/SOD BICARB 8.4% SYR ID PRN (08:36)
[2018-11-10] MEDS: NS(*) 0.9% 1000 ML BAG 1,000 ML IV PRN (08:39)
[2018-11-10] MEDS: HEPARIN FLSH (PORT) 500 UN/5ML IVP PRN (08:40)
[2018-11-10 08:48] LABS: PLATELET COUNT, AUTOMATED 129 K/uL (150-450)
[2018-11-10] MEDS: PALONOSETRON 0.25 MG/5 ML VIAL IVP PRN (09:27)
[2018-11-10] MEDS: DEXAMETHASONE SOD(*) 10MG/ML 10 MG in NS(*) 0.9% 50 ML BAG 50 ML IVP PRN (09:27)
[2018-11-10] MEDS: FOSAPREPITANT DIM 150 MG/5 ML 150 MG in NS(*) 0.9% 250 ML BAG 245 ML IVPB PRN (09:49)
[2018-11-10] MEDS: MAGNESIUM SU IVPB PRN (11:31)
[2018-11-10] MEDS: KCL IVPB PRN (11:31)
[2018-11-10] MEDS: [UNRECOGNIZED DRUG - OTHER] IVPB PRN (11:31)
--- NOTE | 2018-11-10 13:24 | ONCOLOGY FOLLOW UP NOTE ---
EVENT DATE: November 10, 2018 CHIEF COMPLAINT Followup for right tonsillar cancer. HISTORY OF PRESENT ILLNESS Patient is a 73-year-old male who is seen today for consideration of cycle #5 of weekly cisplatin. He continues on daily radiation and believes he is tolerating this well. His relates that he may be eating slower but both feel that his swallowing is "okay". He was able to eat a pork chop last night. He had one episode of blurry vision over the weekend. This has occurred previously and resolved quickly. He has lost a total of 4.4 kg since start of treatment but is working hard on high-calorie, high-protein foods. He denies any other new complaints. ONCOLOGY HISTORY Patient presented in August 2018 with a palpable lymph node in his right neck. CT scan on 09/07/18 showed a 3.1 x 2.2 cm mass in the posterior oropharynx with multiple enlarged lymph nodes along the right neck, up to 1.1 cm. There was reportedly a right intraparotid lymph node as well. Underwent tonsillectomy on 09/10/18. Surgical pathology revealed a 3.5 cm primary with extension to the margin, but no lymphovascular or perineural invasion. 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 PET/CT scan in [place] on 09/21/18 showed the hypermetabolic mass in the right base of the tongue measuring 1.7 cm with an SUV of 12.3. There was a hypermetabolic right intraparotid lymph node with an SUV of 7.6, and additional lymph nodes along the jugular chain anteriorly and posteriorly, extending into the right supraclavicular fossa. No evidence of hypermetabolic metastatic disease. Began concurrent chemoradiation on 10/11/18. PAST MEDICAL HISTORY 1. Squamous cell carcinoma of the oropharynx, September 2018, status post right tonsillectomy. 2. 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 3. Hyperlipidemia. MEDICATIONS 1. Dexamethasone 2. Compazine 3. Lorazepam 4. Zofran ALLERGIES No known drug allergies. FAMILY HISTORY Lung cancer in his sister. No other malignancies. SOCIAL HISTORY Patient is . He has one son. He is retired. He does not smoke. REVIEW OF SYSTEMS A 12-point review of systems is performed and is negative except as stated above. PHYSICAL EXAMINATION VITAL SIGNS: Weight 79.3 kg, BP 116/82, P 62, R 16, temp 98.0, O2 sat 96%. GENERAL: Patient is a well-developed, well-nourished male in no acute distress. HEAD: Normocephalic, atraumatic. EYES: Sclerae anicteric. MOUTH: Dry mucous membranes with erythema noted in posterior pharynx. No skin breakdown at this time. No evidence of thrush. NECK: Supple. Right posterior cervical nodes are now smaller and now mobile. Left posterior cervical node remains and is approximately the same size. LUNGS: Clear bilaterally. CARDIOVASCULAR: Heart rate regular, 68 per minute, without murmur, S3 or S4. ABDOMEN: Soft, nontender with active bowel sounds. G-tube in place. EXTREMITIES: No edema. NEUROLOGIC: Nonfocal. LABS CBC today reveals a WBC of 4.7, ANC of 3.9, hemoglobin 14.0, hematocrit 39.2, platelets 129,000. CMP is within normal limits except for a slightly decreased sodium of 131, albumin 3.5, stable. 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 Began concurrent chemoradiation with weekly cisplatin on October 11, 2018. 1. Squamous cell carcinoma of the oropharynx. Cycle #5 of cisplatin. He continues to tolerate this well. He has not needed to use any nausea medications with this treatment. 2. Radiation. Continue daily radiation. 3. Left cervical adenopathy. The left neck has now been incorporated into his radiation field. Dr. De Oliveira has requested a PET scan and this is scheduled in [place] on November 12, 2018. 4. Weight is down a total of 4.4 kg. He is not using his G-tube. He will meet with the dietitian in the near future but he and his are focussing on high- calorie, high protein foods. Albumin is stable at 3.5. 5. Thrombocytopenia, mild. Platelet count today is 129,000. He has had no issues with bruising or bleeding. We will continue to monitor trend. 6. Follow up in one week for cycle #6 of treatment. MTDD
[2018-11-10 13:52] VITALS: BP 106/81
[2018-11-17 08:33] VITALS: BP 108/78
[2018-11-17] MEDS: NS(*) 0.9% 500 ML BAG 500 ML IV PRN (08:45)
[2018-11-17] MEDS: LIDOCAINE/SOD BICARB 8.4% SYR ID PRN (08:45)
[2018-11-17] MEDS: NS(*) 0.9% 1000 ML BAG 1,000 ML IV PRN (08:46)
[2018-11-17] MEDS: PALONOSETRON 0.25 MG/5 ML VIAL IVP PRN (09:46)
[2018-11-17] MEDS: DEXAMETHASONE SOD(*) 10MG/ML 10 MG in NS(*) 0.9% 50 ML BAG 50 ML IVP PRN (09:47)
[2018-11-17] MEDS: FOSAPREPITANT DIM 150 MG/5 ML 150 MG in NS(*) 0.9% 250 ML BAG 245 ML IVPB PRN (10:06)
--- NOTE | 2018-11-17 11:09 | ONCOLOGY FOLLOW UP NOTE ---
EVENT DATE: November 17, 2018 CHIEF COMPLAINT Followup for right tonsillar cancer. HISTORY OF PRESENT ILLNESS Patient is a 73-year-old male who is seen today for consideration of cycle #6 of weekly cisplatin. He continues on daily radiation. He denies any specific complaints, although notes that swallowing may be slightly affected. Weight is down 14 pounds (6.4 kg) since start of treatment. He is scheduled for a PET scan in [place] on November 18, 2018. Both he and his note more fatigue. ONCOLOGY HISTORY Patient presented in August 2018 with a palpable lymph node in his right neck. CT scan on 09/07/18 showed a 3.1 x 2.2 cm mass in the posterior oropharynx with multiple enlarged lymph nodes along the right neck, up to 1.1 cm. There was reportedly a right intraparotid lymph node as well. Underwent tonsillectomy on 09/10/18. Surgical pathology revealed a 3.5 cm primary with extension to the margin, but no lymphovascular or perineural invasion. 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 PET/CT scan in [place] on 09/21/18 showed the hypermetabolic mass in the right base of the tongue measuring 1.7 cm with an SUV of 12.3. There was a hypermetabolic right intraparotid lymph node with an SUV of 7.6, and additional lymph nodes along the jugular chain anteriorly and posteriorly, extending into the right supraclavicular fossa. No evidence of hypermetabolic metastatic disease. Began concurrent chemoradiation on 10/11/18. PAST MEDICAL HISTORY 1. Squamous cell carcinoma of the oropharynx, September 2018, status post right tonsillectomy. 2. 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 3. Hyperlipidemia. MEDICATIONS 1. Dexamethasone 2. Compazine 3. Lorazepam 4. Zofran ALLERGIES No known drug allergies. FAMILY HISTORY Lung cancer in his sister. No other malignancies. SOCIAL HISTORY Patient is . He has one son. He is retired. He does not smoke. REVIEW OF SYSTEMS A 12-point review of systems is performed and is negative except as stated above. PHYSICAL EXAMINATION VITAL SIGNS: Weight 77.5 kg, BP 108/78, P 68, R 16, temp 97.6, O2 sat 96%. GENERAL: Patient is a well-developed, well-nourished male in no acute distress. HEAD: Normocephalic, atraumatic. EYES: Sclerae anicteric. MOUTH: Dry mucous membranes. No lesions noted. NECK: Supple. Right posterior cervical nodes are smaller and more mobile. Left posterior cervical node is also slightly smaller and more mobile. Increased erythema noted to the neck, right greater than left, but no skin breakdown. LUNGS: Clear bilaterally. CARDIOVASCULAR: Heart rate regular, 68 per minute, without murmur, S3 or S4. EXTREMITIES: No edema. NEUROLOGIC: Nonfocal. LABS CBC today reveals a WBC of 4.2, ANC of 3.6, hemoglobin 13.8, hematocrit 39.8, platelets 152,000. CMP is within normal limits except for a slightly low sodium of 133. 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 Began concurrent chemoradiation with weekly cisplatin on October 11, 2018. 1. Squamous cell carcinoma of the oropharynx. Cycle #6 of weekly cisplatin. He has tolerated this fairly well. He has had no issues with nausea. 2. Radiation. Continue daily radiation. Increased erythema to the neck is noted. No skin breakdown at this time. I emphasized the need for routine moisturizing. 3. Adenopathy. Overall much improved. Dr. De Oliveira has ordered a PET scan, which will be done on November 18, 2018 in [place]. 4. Weight. Weight is down a total of 6.4 kg since the start of treatment. He denies specific dysphagia but feels his swallowing has been affected. Jackie, our dietitian, also met with them today. His has done a very good job giving him high calorie, high protein food. They have been hesitant to use the G-tube and would prefer to do this through dietary measures at home. Albumin has been stable, today 3.7. We reviewed that recovery from head and neck cancer treatment can often take longer than most cancer treatments and that adequate nutrition is essential. He will be re-evaluated next week with thoughts of using tube. She does plan to give one can of Jevity 1.5 by mouth. 5. Follow up in one week for cycle #7 of treatment. MTDD
[2018-11-17] MEDS: KCL IVPB PRN (12:02)
[2018-11-17] MEDS: HEPARIN FLSH (PORT) 500 UN/5ML IVP PRN (12:02)
[2018-11-17] MEDS: [UNRECOGNIZED DRUG - OTHER] IVPB PRN (12:02)
[2018-11-17] MEDS: MAGNESIUM SU IVPB PRN (12:02)
[2018-11-17 14:00] VITALS: BP 124/78
--- NOTE | 2018-11-17 18:07 | Medical Nutrition Therapy ---
Nutrition Anthropometrics Height (Inches): 66.16 Height (Calculated Centimeters: 168.0464 Weight (Pounds): 170 (pt states his usual wt is ~184 lbs) BMI: 27.4 Hx Weight Loss: Yes (patient has lost ~13.5 lbs over the past 5 weeks ) Nutritional Education Nutrition Education Topic: Other (nutrition supplemental drinks ) Learning Readiness: Interested Teaching Methods: Discussion Response to Teaching: Verbalize understanding Teaching Recipient: Patient, Significant Other (patient's Adelaida present ) Nutrition Counseling: We discussed how the patient's intake was over the last week, whether they wanted to start the tubefeeding, and adding a nutritional supplement drink to each meal. Nutrition Monitoring & Eval Nutrition Goals: Eat 75-100% Meal, Drink > 2 liters/day Nutritional Goals Comment: No additional wt loss (maintain 170 lbs), 3 nutritional supplement drinks/day- 1 per meal If unable to maintain wt, patient and will try the tubefeeding Nutrition Follow-Up: Taking Snack Supplement (currently doing 1 nutritional supplement drink/day), Fair Intake (still able to eat and swallow foods, taste and enjoyment of food has decreased) Nutrition Monitoring: patient has lost 13.5 lbs, states certain foods feel slimy (unpleasant), his po intake has decreased however he has added 1 nutritional supplement drink/day RD Patient Assessment Time: [address] Assessment Type: RD Re-Assessment Patient Nutrition Acuity: 2-Moderate Follow Up Date: Nov 24, 2018 Nutritional Comment: I will follow up with the Dat and Adelaida in one week to review wt and determine if they are ready to start tubefeeding if needed. I encouraged patient to call or let RN know if he or his feel his po intake has decreased too much and needs to start tubefeeding. ARABELLA MAYA RDN, DESIRAE Nov 17, 2018 18:06
[2018-11-24] MEDS: NS(*) 0.9% 1000 ML BAG 1,000 ML IV PRN (08:30)
[2018-11-24 08:34] VITALS: BP 110/76
[2018-11-24] MEDS: LIDOCAINE/SOD BICARB 8.4% SYR ID PRN (08:48)
[2018-11-24] MEDS: NS(*) 0.9% 500 ML BAG 500 ML IV PRN (09:00)
[2018-11-24] MEDS: HEPARIN FLSH (PORT) 500 UN/5ML IVP PRN (09:57)
--- NOTE | 2018-11-24 11:56 | Medical Nutrition Therapy ---
Nutrition Anthropometrics Height (Inches): 66.16 Height (Calculated Centimeters: 168.0464 Weight (Pounds): 165 (pt states his usual wt is ~184 lbs) BMI: 26.6 Hx Weight Loss: Yes (patient has lost ~18 lbs over the past 6 weeks ) Nutritional Diagnosis Nutritional Risk Acuity 2: Head/Neck/GI Cancer (recently placed PEG Tube) Nutritional Acuity: 2-Moderate Adjusted Energy Requirement Re: 2800 Protein Requirement: 92 Fluid Requirement: 2100 Nutrition Intervention: Cont diet as ordered, Encourage intake, Nutrition support Nutritional Needs Comment: Patient has a PEG tube - currently not using, it may be used as treatment progresses and if PO intake decreases to help meet Prince's nutrition needs Tubefeeding recommendations will be provided as needed Nutritional Support Recommended Enteral / Parental: Tube Feeding Recommended Tube Feeding Formu: Jevity 1.5 Tube Feeding Supplement Streng: Full Recommended Feeding Route: PEG Recommended Bolus Feeding: start with 1 can as needed, increase as needed to meet patients john needs Nutrition Monitoring & Eval Nutrition Goals: Eat 90-100% Meal, Drink > 2 liters/day Nutritional Goals Comment: Goal was to maintain 170 lbs, if unable to meet calorie needs with po intake will start tubefeeding Nutrition Follow-Up: Taking Snack Supplement, Poor Intake Nutrition Monitoring: Patient has lost 5 lbs in one week RD Patient Assessment Time: [address] Assessment Type: RD Re-Assessment Patient Nutrition Acuity: 2-Moderate Follow Up Date: Nov 25, 2018 Nutritional Comment: Patient and his agree to start tubefeeding, the patient and will go to [employer] to purchase ~5 cans of Jevity 1.5, Alejandra (RN) will teach how to administer the tubefeeding on 11/25, the patient and will bring Jevity 1.5 and supplies to the appt. ARABELLA MAYA RDN, DESIRAE Nov 24, 2018 11:56
--- NOTE | 2018-11-24 12:12 | ONCOLOGY FOLLOW UP NOTE ---
EVENT DATE: November 24, 2018 CHIEF COMPLAINT Followup for right tonsillar cancer. HISTORY OF PRESENT ILLNESS Patient is a 73-year-old male who is seen today for consideration of cycle #7 of weekly cisplatin. He continues on daily radiation. Today he presents with further weight loss. He is having more difficulty with dysphagia. The right side of his neck is erythematous with mild evidence of skin breakdown with overall dryness. He is more fatigued. Thankfully, PET scan done on November 18, 2018, is reported as negative. ONCOLOGY HISTORY Patient presented in August 2018 with a palpable lymph node in his right neck. CT scan on September 07, 2018 showed a 3.1 x 2.2 cm mass in the posterior oropharynx with multiple enlarged lymph nodes along the right neck, up to 1.1 cm. There was reportedly a right intraparotid lymph node as well. Underwent tonsillectomy on September 10, 2018. Surgical pathology revealed a 3.5 cm primary with extension to the margin, but no lymphovascular or perineural invasion. 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 PET/CT scan in [place] on September 21, 2018 showed the hypermetabolic mass in the right base of the tongue measuring 1.7 cm with an SUV of 12.3. There was a hypermetabolic right intraparotid lymph node with an SUV of 7.6, and additional lymph nodes along the jugular chain anteriorly and posteriorly, extending into the right supraclavicular fossa. No evidence of hypermetabolic metastatic disease. Began concurrent chemoradiation on October 11, 2018. Completed six cycles of weekly cisplatin on November 17, 2018. PAST MEDICAL HISTORY 1. Squamous cell carcinoma of the oropharynx, September 2018, status post right tonsillectomy. 2. 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 3. Hyperlipidemia. MEDICATIONS 1. Dexamethasone 2. Compazine 3. Lorazepam 4. Zofran ALLERGIES No known drug allergies. FAMILY HISTORY Lung cancer in his sister. No other malignancies. SOCIAL HISTORY Patient is . He has one son. He is retired. He does not smoke. REVIEW OF SYSTEMS A 12-point review of systems is performed and is negative except as stated above. PHYSICAL EXAMINATION VITAL SIGNS: Weight 75.1 kg, BP 110/76, P 68, R 16, temp 97.8, O2 sat 97%. GENERAL: Patient is a well-developed but appearing male in no acute distress. HEAD: Normocephalic, atraumatic. EYES: Sclerae anicteric. MOUTH: Dry mucous membranes with erythema noted in posterior pharynx and upper palate. NECK: Supple with erythema noted on the right side. Mild evidence of skin breakdown. Skin remains very dry. LYMPH: No palpable adenopathy. LUNGS: Clear bilaterally. CARDIOVASCULAR: Heart rate regular, 68 per minute, without murmur, S3 or S4. EXTREMITIES: No edema. NEUROLOGIC: Nonfocal. LABS CBC today reveals a WBC of 3.0, ANC of 2.4, hemoglobin 13.4, hematocrit 39.6, platelets 159,000. CMP is within normal limits except for a sodium of 132. 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 Began concurrent chemoradiation with weekly cisplatin on October 11, 2018. Completed six cycles of weekly cisplatin on November 17, 2018. 1. Squamous cell carcinoma of the oropharynx. Patient presents for cycle #7 of weekly cisplatin. However, due to increasing dysphagia as well as leukopenia, this treatment will be discontinued at this time. 2. Radiation. Continue daily radiation. I reminded him to actively moisturize his neck as he does have significant erythema and dry skin with mild evidence of skin breakdown. 3. Adenopathy. Now resolved. PET scan done in [place] showed resolution of disease suggesting an excellent response to therapy. 4. Weight. Weight is down a total of 8.6 kg since start of treatment. He is now having more issues with dysphagia. He met again with Jackie, our dietitian, and a recommendation was to start Jevity 1.5 approximately three cans per day per feeding tube. He will be seen tomorrow and one of our nurses will instruct them on the process. I have recommended he continue eating to keep up with his swallowing, which he hopes to do. 5. Hydration. Blood pressure is slightly lower today. He is not able to drink as much due to dysphagia and overall discomfort. I have recommended he receive IV fluids on a p.r.n. basis. 5. Follow up with Dr. Jordan on December 01, 2018, for continued care, earlier if there is a problem. MTDD
[2018-11-29 08:39] VITALS: BP 96/84
[2018-11-29] MEDS: NS(*) 0.9% 1000 ML BAG 1,000 ML IV PRN (08:45)
[2018-11-29] MEDS: HEPARIN FLSH (PORT) 500 UN/5ML IVP PRN (10:01)
[2018-11-29] MEDS: LIDOCAINE/SOD BICARB 8.4% SYR ID PRN (10:01)
[2018-11-29 10:06] VITALS: BP 112/72
[2018-12-01] MEDS: LIDOCAINE/SOD BICARB 8.4% SYR ID PRN (08:09)
[2018-12-01] MEDS: NS(*) 0.9% 1000 ML BAG 1,000 ML IV PRN (08:09)
[2018-12-01] MEDS: HEPARIN FLSH (PORT) 500 UN/5ML IVP PRN (08:09)
[2018-12-01 08:32] VITALS: BP 106/73
[2018-12-01 08:51] LABS: PLATELET COUNT, AUTOMATED 158 K/uL (150-450)
[2018-12-01] MEDS: NS(*) 0.9% 500 ML BAG 500 ML IV PRN (09:49)
--- NOTE | 2018-12-01 10:10 | Medical Nutrition Therapy ---
Nutrition Anthropometrics Height (Inches): 66.16 Height (Calculated Centimeters: 168.0464 Weight (Pounds): 165 (pt states his usual wt is ~184 lbs) BMI: 26.6 Hx Weight Loss: Yes (patient has lost ~20 lbs in 2 months ) Nutritional Diagnosis Nutritional Risk Acuity 2: Head/Neck/GI Cancer (recently placed PEG Tube) Nutritional Acuity: 2-Moderate Nutrition Diagnosis: Inadequate Food Intake, Swallowing Difficulties Nutrition Etiology: Physiological Causes (swallowing difficulties due to thrush from Radiation [place] ) Adjusted Energy Requirement Re: 2800 Protein Requirement: 92 Fluid Requirement: 2100 Nutrition Intervention: Cont diet as ordered, Encourage intake, Nutrition support Nutritional Needs Comment: Patient has started using tubefeeding to meet nutrition needs Nutritional Support Current Enteral / Parental: Tube Feeding Current Tube Feeding Formula C: Jevity 1.5 Tube Feeding Supplement Streng: Full Feeding Route: PEG Bolus Feedin can with 30 ml water pre and post feeding 4x/day Current Feeding Comment: advance as tolerated, if no or poor intake, goal of 8 cans/day Nutrition Monitoring & Eval Nutritional Goals Comment: continue to encourage po intake, advance tubefeeding amount as tolerated to 8 cans/day if no po intake Nutrition Follow-Up: Poor Intake Nutrition Monitoring: po intake is poor due to thrush, patient and his are working with [employer] at [employer] to get Jevity 1.5 RD Patient Assessment Time: [address] Assessment Type: RD Re-Assessment Patient Nutrition Acuity: 2-Moderate Nutritional Comment: I will follow up as needed, encouraged patient and his to call if they have any questions. ARABELLA MAYA RDN, DESIRAE Dec 01, 2018 10:10
[2018-12-01 10:35] VITALS: BP 117/91
--- NOTE | 2018-12-02 19:42 | ONCOLOGY FOLLOW UP NOTE ---
EVENT DATE: December 01, 2018 CHIEF COMPLAINT Followup for right tonsillar cancer. HISTORY OF PRESENT ILLNESS Patient is a 73-year-old male who was seen today in followup. He completed his weekly cisplatin on 11/17/18. His last scheduled radiation treatment is on 12/03/18. He presents today and has significant discomfort. He is no longer taking anything by mouth. His has started him on tube feedings, and he is managing three to four cans of Jevity 1.5 a day. He has erythema to his neck, but this has improved over the past week. He has significant radiation- associated mucositis. He has lost a total of 9 kg since start of therapy. ONCOLOGY HISTORY Patient presented in August 2018 with a palpable lymph node in his right neck. CT scan on September 07, 2018, showed a 3.1 x 2.2 cm mass in the posterior oropharynx with multiple enlarged lymph nodes along the right neck up to 1.1 cm. There was reportedly a right intraparotid lymph node as well. Underwent tonsillectomy on September 10, 2018. Surgical pathology revealed a 3.5 cm primary with extension to the margin, but no lymphovascular or perineural invasion. 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 PET/CT scan in [place] on September 21, 2018, showed a hypermetabolic mass in the right base of the tongue measuring 1.7 cm with an SUV of 12.3. There was a hypermetabolic right intraparotid lymph node with an SUV of 7.6 and additional lymph nodes along the jugular chain anteriorly and posteriorly extending into the right supraclavicular fossa. No evidence of hypermetabolic metastatic disease. Began concurrent chemoradiation on October 11, 2018. Completed six cycles of weekly cisplatin on November 17, 2018. PAST MEDICAL HISTORY 1. Squamous cell carcinoma of the oropharynx, September 2018, status post right tonsillectomy. 2. 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 3. Hyperlipidemia. MEDICATIONS 1. Dexamethasone. 2. Compazine. 3. Lorazepam. 4. Zofran. ALLERGIES No known drug allergies. FAMILY HISTORY Lung cancer in his sister. No other malignancies. SOCIAL HISTORY Patient is . He has one son. He is retired. He does not smoke. REVIEW OF SYSTEMS A 12-point review of systems is performed and is negative except as stated above. PHYSICAL EXAMINATION VITAL SIGNS: Weight 74.7 kg. BP 106/73, P 73, R 16, temp 97.2, O2 sat 95%. GENERAL: Patient is a well-developed, well-nourished, but fatigued-appearing male in no acute distress. HEAD: Normocephalic, atraumatic. EYES: Sclerae anicteric. MOUTH: Significant radiation-associated mucositis with lesions noted on both sides of his tongue and on his inner cheeks. No evidence of candidiasis at this time. NECK: Supple with mild erythema. No skin breakdown. No palpable adenopathy. LUNGS: Clear bilaterally. CARDIOVASCULAR: Heart rate regular, 75 per minute, without murmur, S3, or S4. EXTREMITIES: No edema. NEUROLOGIC: Nonfocal. LABORATORY CBC today reveals a WBC of 2.9, ANC of 2.3, hemoglobin 13.2, hematocrit 38.4, platelets 185,000. CMP is within normal limits including an albumin of 3.8. IMPRESSION AND PLAN The patient is a 73-year-old male recently diagnosed with stage CAROL human papillomavirus-positive squamous cell carcinoma of the oropharynx. Began concurrent chemoradiation with weekly cisplatin on October 11, 2018. Completed six cycles of weekly cisplatin on November 17, 2018. 1. Squamous cell carcinoma of the right tonsil. Patient continues on daily radiation. His last treatment will be on 12/03/18. 2. Adenopathy. PET scan done in [place] showed resolution of disease. No palpable adenopathy. 3. Weight. He has now lost a total of 9 kg since start of treatment. He is no longer able to eat or drink much. His has started using Jevity 1.5 per tube and is working up to four to five cans per day. He continues followup with Jackie, our dietitian. 4. Hydration. Recommend intravenous hydration three times per week for the next two weeks. We can then decrease this as symptoms improve. 5. Survivorship. Dr. Jordan also met with the patient. We discussed that recovery from chemoradiation for head and neck cancer can take several months, but we expect he will improve slowly on a daily basis. We reviewed that a dry mouth could be a potential long-term side effect as well as dental issues. He will follow up with his dentist twice a year. We also reviewed that hypothyroidism could be an issue. Thyroid function tests will be monitored routinely. 6. Leukopenia. Mild, without neutropenia. Will continue to follow. 7. Follow up for hydration Thursday, Thursday, Thursday, and as needed for continued care. MTDD
[2018-12-03 08:28] VITALS: BP 105/79
[2018-12-03] MEDS: NS(*) 0.9% 1000 ML BAG 1,000 ML IV PRN (08:35)
[2018-12-03] MEDS: LIDOCAINE/SOD BICARB 8.4% SYR ID PRN (08:36)
[2018-12-03] MEDS: HEPARIN FLSH (PORT) 500 UN/5ML IVP PRN (09:11)
[2018-12-06 08:30] VITALS: BP 106/71
[2018-12-06] MEDS: LIDOCAINE/SOD BICARB 8.4% SYR ID PRN (08:30)
[2018-12-06] MEDS: HEPARIN FLSH (PORT) 500 UN/5ML IVP PRN ×2 (08:40→09:48)
[2018-12-06] MEDS: NS(*) 0.9% 1000 ML BAG 1,000 ML IV PRN (08:40)
[2018-12-06 09:49] VITALS: BP 113/74
[2018-12-08 08:47] VITALS: BP 114/80
[2018-12-08] MEDS: LIDOCAINE/SOD BICARB 8.4% SYR ID PRN (08:50)
[2018-12-08] MEDS: HEPARIN FLSH (PORT) 500 UN/5ML IVP PRN (08:51)
[2018-12-08] MEDS: NS(*) 0.9% 1000 ML BAG 1,000 ML IV PRN (08:51)
[2018-12-10 08:43] VITALS: BP 109/67
[2018-12-10] MEDS: NS(*) 0.9% 1000 ML BAG 1,000 ML IV PRN (08:55)
[2018-12-10] MEDS: LIDOCAINE/SOD BICARB 8.4% SYR ID PRN (08:57)
[2018-12-10 09:06] LABS: PLATELET COUNT, AUTOMATED 248 K/uL (150-450)
[2018-12-10 10:45] VITALS: BP 107/70
[2018-12-10] MEDS: HEPARIN FLSH (PORT) 500 UN/5ML IVP PRN (10:46)
--- NOTE | 2018-12-10 17:31 | ONCOLOGY FOLLOW UP NOTE ---
EVENT DATE: December 10, 2018 CHIEF COMPLAINT Followup for head and neck cancer. HISTORY OF PRESENT ILLNESS Patient is a 73-year-old male who was seen today for continued IV hydration. He completed weekly cisplatin on 11/17/18 and completed radiation on 12/03/18. Since then, he has been getting nutrition by tube only. He does not describe significant pain, but his tells me he appears uncomfortable at times. He has been scheduled for IV hydration Mondays, Wednesdays, Fridays, which has been somewhat helpful. He denies any other complaints. ONCOLOGY HISTORY Patient presented in August 2018 with a palpable lymph node in his right neck. CT scan on September 07, 2018, showed a 3.1 x 2.2 cm mass in the posterior oropharynx with multiple enlarged lymph nodes along the right neck up to 1.1 cm. There was reportedly a right intraparotid lymph node as well. Underwent tonsillectomy on September 10, 2018. Surgical pathology revealed a 3.5 cm primary with extension to the margin, but no lymphovascular or perineural invasion. 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 PET/CT scan in [place] on September 21, 2018, showed a hypermetabolic mass in the right base of the tongue measuring 1.7 cm with an SUV of 12.3. There was a hypermetabolic right intraparotid lymph node with an SUV of 7.6 and additional lymph nodes along the jugular chain anteriorly and posteriorly extending into the right supraclavicular fossa. No evidence of hypermetabolic metastatic disease. Began concurrent chemoradiation on October 11, 2018. Completed six cycles of weekly cisplatin on November 17, 2018. PAST MEDICAL HISTORY 1. Squamous cell carcinoma of the oropharynx, September 2018, status post right tonsillectomy. 2. 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 3. Hyperlipidemia. MEDICATIONS 1. Dexamethasone. 2. Compazine. 3. Lorazepam. 4. Zofran. ALLERGIES No known drug allergies. FAMILY HISTORY Lung cancer in his sister. No other malignancies. SOCIAL HISTORY Patient is . He has one son. He is retired. He does not smoke. REVIEW OF SYSTEMS A 12-point review of systems is performed and is negative except as stated above. PHYSICAL EXAMINATION VITAL SIGNS: Weight 74.7 kg (same as last week). BP 109/67, P 76, R 16, temp 97.2, O2 sat 95%. GENERAL: Patient is a well-developed, well-nourished male in no acute distress. HEAD: Normocephalic, atraumatic. EYES: Sclerae anicteric. MOUTH: Increased saliva production. Erythema noted on upper palate, but no lesions. No evidence of candidiasis. NECK: Supple with mild erythema, slowly improving. No skin breakdown. No palpable adenopathy. LUNGS: Clear bilaterally. CARDIOVASCULAR: Heart rate regular, 76 per minute, without murmur, S3, or S4. EXTREMITIES: No edema. NEUROLOGIC: Nonfocal. LABORATORY CBC today reveals a WBC of 3.5, ANC of 2.8, hemoglobin 12.6, hematocrit 36.6, platelets 248,000. CMP is within normal limits. Albumin has been stable at 3.8. 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 Began concurrent chemoradiation with weekly cisplatin on October 11, 2018. Completed six cycles of weekly cisplatin on November 17, 2018. Completed concurrent radiation on 12/03/18. PLAN 1. Squamous cell carcinoma of the right tonsil. Patient has now completed chemoradiation and is grateful for that. 2. Hydration. He is no longer able to swallow well, so he is receiving IV hydration three times per week. His believes that this is likely helpful. 3. Nutrition. Now receiving all nutrition through his tube. He is using Jevity 1.5 and is able to get in five cans per day. Albumin is stable at 3.8. 4. Leukopenia. Slowly improving. He has had no intercurrent infections. 5. Pain. Patient does not complain of pain but admits to intermediate project manager discomfort. We discussed adding hydrocodone per tube as needed and he will consider this. 6. Follow up for hydration Thursday, Thursday, Thursday. 7. Follow up with CBC and CMP on 12/17/18. 8. Follow up with Dr. Jordan on 01/12/19. [facility]
[2018-12-13] MEDS: LIDOCAINE/SOD BICARB 8.4% SYR ID PRN (08:05)
[2018-12-13 08:16] VITALS: BP 104/72
[2018-12-13] MEDS: NS(*) 0.9% 1000 ML BAG 1,000 ML IV PRN (08:18)
[2018-12-13] MEDS: HEPARIN FLSH (PORT) 500 UN/5ML IVP PRN (09:15)
[2018-12-15 08:36] VITALS: BP 115/84
[2018-12-15] MEDS: NS(*) 0.9% 1000 ML BAG 1,000 ML IV PRN (08:36)
[2018-12-15] MEDS: HEPARIN FLSH (PORT) 500 UN/5ML IVP PRN (09:40)
[2018-12-15] MEDS: LIDOCAINE/SOD BICARB 8.4% SYR ID PRN (09:40)
[2018-12-17 08:36] VITALS: BP 113/77
[2018-12-17] MEDS: LIDOCAINE/SOD BICARB 8.4% SYR ID PRN (08:44)
[2018-12-17] MEDS: HEPARIN FLSH (PORT) 500 UN/5ML IVP PRN (08:44)
[2018-12-17] MEDS: NS(*) 0.9% 1000 ML BAG 1,000 ML IV PRN (08:44)
[2018-12-17 09:51] VITALS: BP 109/72
--- NOTE | 2018-12-17 19:47 | ONCOLOGY FOLLOW UP NOTE ---
EVENT DATE: December 17, 2018 CHIEF COMPLAINT Follow up for head and neck cancer. HISTORY OF PRESENT ILLNESS Patient is a 73-year-old male who was seen today in followup. He has been receiving hydration on a Thursday, Thursday, Thursday basis, which has been helpful. Today, he presents and has now started to eat soft foods. He usually eats breakfast and is tolerating this fairly well. He does have some difficulty swallowing liquids, and we discussed a trial of thicker liquids. Weight is up 0.7 kg. He denies any significant pain. The erythema on his neck has decreased markedly, but remains slightly dry. ONCOLOGY HISTORY Patient presented in August 2018 with a palpable lymph node in his right neck. CT scan on September 07, 2018, showed a 3.1 x 2.2 cm mass in the posterior oropharynx with multiple enlarged lymph nodes along the right neck up to 1.1 cm. There was reportedly a right intraparotid lymph node as well. Underwent tonsillectomy on September 10, 2018. Surgical pathology revealed a 3.5 cm primary with extension to the margin, but no lymphovascular or perineural invasion. 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 PET CT scan in [place] on September 21, 2018, showed a hypermetabolic mass in the right base of the tongue measuring 1.7 cm with an SUV of 12.3. There was a hypermetabolic right intraparotid lymph node with an SUV of 7.6 and additional lymph nodes along the jugular chain anteriorly and posteriorly extending into the right supraclavicular fossa. No evidence of hypermetabolic metastatic disease. Began concurrent chemoradiation on October 11, 2018. Completed six cycles of weekly cisplatin on November 17, 2018. Completed radiation on 12/03/18.December 03, 2018. PAST MEDICAL HISTORY 1. Squamous cell carcinoma of the oropharynx, September 2018, status post right tonsillectomy. 2. 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 3. Hyperlipidemia. MEDICATIONS 1. Dexamethasone. 2. Compazine. 3. Lorazepam. 4. Zofran. ALLERGIES No known drug allergies. FAMILY HISTORY Lung cancer in his sister. No other malignancies. SOCIAL HISTORY Patient is . He has one son. He is retired. He does not smoke. REVIEW OF SYSTEMS A 12-point review of systems is performed and is negative except as stated above. PHYSICAL EXAMINATION VITAL SIGNS: Weight 75.4 kg. BP 113/77, P 72, R 16, temp 97.3, O2 sat 95%. GENERAL: Patient is a well-developed, well-nourished male in no acute distress. Voice is stronger today. HEAD: Normocephalic, atraumatic. EYES: Sclerae anicteric. MOUTH: Moist mucous membranes. Minimal erythema noted in posterior pharynx. NECK: Supple. No palpable adenopathy. Skin remains dry, but erythema has resolved. LUNGS: Clear bilaterally. CARDIOVASCULAR: Heart rate regular, 72 per minute, without murmur, S3, or S4. EXTREMITIES: No edema. NEUROLOGIC: Nonfocal. LABORATORY No lab today. 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 Began concurrent chemoradiation with weekly cisplatin on October 11, 2018. Completed six cycles of weekly cisplatin on November 17, 2018. Completed radiation on 12/03/18. PLAN 1. Squamous cell carcinoma of the right tonsil. Patient has completed chemoradiation and is feeling better "every day." 2. Hydration. He has been receiving IV hydration three times per week which has been helpful. As he is now eating and drinking more, we mutually agreed to decrease to Thursday and next week. 3. Nutrition. Now eating soft foods for breakfast. He has trouble swallowing some liquids, and I recommended a trial of thicker liquids/milkshakes. Albumin has been stable at 3.8, and weight is up 0.7 kg. 4. Follow up for hydration on Thursday and next week. CBC and CMP will be drawn on 12/20/18. 5. Follow up with Dr. Jordan on 01/12/19 for continued care. LOSD
[2018-12-20 08:29] VITALS: BP 112/77
[2018-12-20] MEDS: LIDOCAINE/SOD BICARB 8.4% SYR ID PRN (08:43)
[2018-12-20] MEDS: NS(*) 0.9% 1000 ML BAG 1,000 ML IV PRN (08:44)
[2018-12-20] MEDS: HEPARIN FLSH (PORT) 500 UN/5ML IVP PRN (08:44)
[2018-12-20 08:48] LABS: PLATELET COUNT, AUTOMATED 299 K/uL (150-450)
[2018-12-20 09:42] VITALS: BP 114/75
[2018-12-23 08:35] VITALS: BP 116/84
[2018-12-23] MEDS: LIDOCAINE/SOD BICARB 8.4% SYR ID PRN (08:41)
[2018-12-23] MEDS: NS(*) 0.9% 1000 ML BAG 1,000 ML IV PRN (08:41)
[2018-12-23] MEDS: HEPARIN FLSH (PORT) 500 UN/5ML IVP PRN (08:42)
[2018-12-23 09:43] VITALS: BP 105/76
[~2018-12-27] VITALS: Ht 168 cm; Wt 75.7 kg
[~2018-12-27 08:30] MED LIST changes: +ALTEPLASE RECOMB 2 MG VIAL IVP PRN; +CISPLATIN IVPB ONE; +CISPLATIN IVPB PRN; +DEXTROSE 5%(*) 100 ML BAG 100 ML IVPB PRN; -IOPAMIDOL 76% 75 ML INFUS BTL 75 ML ONE; +KCL IV PRN; +MAGNESIUM SULFATE IV PRN; +NS 0.9% IVPB ONE; +NS 0.9% IVPB PRN; +NS(*) 0.9% 100 ML BAG 100 ML IVPB PRN; +WATER FOR INJ,STERILE 20 ML IVP PRN; +[UNRECOGNIZED DRUG - OTHER] IV PRN
[2018-12-27 08:34] VITALS: BP 128/83
[2018-12-27] MEDS: LIDOCAINE/SOD BICARB 8.4% SYR ID PRN (08:44)
[2018-12-27] MEDS: HEPARIN FLSH (PORT) 500 UN/5ML IVP PRN (08:44)
[2018-12-27] MEDS: NS(*) 0.9% 1000 ML BAG 1,000 ML IV PRN (08:44)
[2018-12-27 09:46] VITALS: BP 103/73
--- NOTE | 2018-12-28 04:59 | ONCOLOGY FOLLOW UP NOTE ---
EVENT DATE: December 27, 2018 CHIEF COMPLAINT Followup for head and neck cancer. HISTORY OF PRESENT ILLNESS Patient is a 73-year-old male who is seen today in followup. He has been receiving hydration, initially three times per week, and last week twice a week. He will be hydrated today. He is now eating soft foods and "trying to drink water." We discussed holding hydration after today's visit, but they understand they can call us if they feel that he is not getting enough fluids. His weight continues to increase, 1 kg in the past two weeks. He has some mild throat discomfort, but overall is feeling well. The erythema on his neck has resolved. ONCOLOGY HISTORY Patient presented in August 2018 with a palpable lymph node in his right neck. CT scan on September 07, 2018, showed a 3.1 x 2.2 cm mass in the posterior oropharynx with multiple enlarged lymph nodes along the right neck up to 1.1 cm. There was reportedly a right intraparotid lymph node as well. Underwent tonsillectomy on September 10, 2018. Surgical pathology revealed a 3.5 cm primary with extension to the margin, but no lymphovascular or perineural invasion. 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 PET/CT scan in [place] on September 21, 2018, showed a hypermetabolic mass in the right base of the tongue measuring 1.7 cm with an SUV of 12.3. There was a hypermetabolic right intraparotid lymph node with an SUV of 7.6 and additional lymph nodes along the jugular chain anteriorly and posteriorly extending into the right supraclavicular fossa. No evidence of hypermetabolic metastatic disease. Began concurrent chemoradiation on October 11, 2018. Completed six cycles of weekly cisplatin on November 17, 2018. Completed radiation on 12/03/18.December 03, 2018. PAST MEDICAL HISTORY 1. Squamous cell carcinoma of the oropharynx, September 2018, status post right tonsillectomy. 2. 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 3. Hyperlipidemia. MEDICATIONS 1. Dexamethasone. 2. Compazine. 3. Lorazepam. 4. Zofran. ALLERGIES No known drug allergies. FAMILY HISTORY Lung cancer in his sister. No other malignancies. SOCIAL HISTORY Patient is . He has one son. He is retired. He does not smoke. REVIEW OF SYSTEMS A 12-point review of systems is performed and is negative except as stated above. PHYSICAL EXAMINATION VITAL SIGNS: Weight 75.7 kg. BP 128/83, P 74, R 16, temp 96.8, O2 sat 97%. GENERAL: Patient is a well-developed, well-nourished male in no acute distress. HEAD: Normocephalic, atraumatic. EYES: Sclerae anicteric. MOUTH: Moist mucous membranes. No lesions noted. NECK: Supple. No palpable adenopathy. Skin erythema has now resolved. LUNGS: Clear bilaterally. CARDIOVASCULAR: Heart rate regular, 74 per minute, without murmur, S3, or S4. EXTREMITIES: No edema. NEUROLOGIC: Nonfocal. LABORATORY No lab today. 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 Began concurrent chemoradiation with weekly cisplatin on October 11, 2018. Completed six cycles of weekly cisplatin on November 17, 2018. Completed radiation on 12/03/18. PLAN 1. Squamous cell carcinoma of the right tonsil. Patient completed chemoradiation on 12/03/18. He believes most toxicities have now resolved. 2. Nutrition. He is eating small amount of soft foods for each meal. I have encouraged them to continue with the Jevity 1.5 for additional calories and protein. Albumin has been stable, last 4.0. 3. Weight. Patient lost a total of 19.8 kg since start of treatment; however, he is up 1 kg over the past week, as he is now eating more. 4. Survivorship. Discussed the importance of slowly increasing activity. I have encouraged him to walk outside once or twice daily and gradually increase his level of activity. 5. Hydrate with 1L of normal saline today. They will notify us if they feel he requires more. 6. Follow up with Dr. Llamas on 01/12/19. CBC, CMP, and magnesium will be drawn at that time. MTDD
== END 2018-12-28 ==
LOC: ONC 08:30
PROVIDERS: ATTEND Internal Medicine Medical Oncology
DX: Z51.11 Encounter for antineoplastic chemotherapy (principal); C09.9 Malignant neoplasm of tonsil, unspecified; Z92.3 Personal history of irradiation; Z92.21 Personal history of antineoplastic chemotherapy; E86.0 Dehydration
CPT/HCPCS: 36591; 83735; 84100; 85025; 85027; 96360; 96361; 96366; 96367; 96375; 96413; 99202; 99212; J1100; J1453; J1642; J2469; J3475; J3480; J7030; J7040; J7050; J9060; 82040; 82247; 82310; 82374; 82435; 82565; 82947; 84075; 84132; 84155; 84295; 84450; 84460; 84520

== ENCOUNTER → 2019-05-03 | Outpatient (CLI) | payer OTHER ==
[~2019-05-03] MED LIST changes: -ALTEPLASE RECOMB 2 MG VIAL IVP PRN; +APIX5TAB PO; -CISPLATIN IVPB ONE; -CISPLATIN IVPB PRN; -DEXTROSE 5%(*) 100 ML BAG 100 ML IVPB PRN; -KCL IV PRN; -MAGNESIUM SULFATE IV PRN; -NS 0.9% IVPB ONE; -NS 0.9% IVPB PRN; -NS(*) 0.9% 100 ML BAG 100 ML IVPB PRN; +PEMB100V IV; +PRED-1 PO; -WATER FOR INJ,STERILE 20 ML IVP PRN; -[UNRECOGNIZED DRUG - OTHER] IV PRN
--- NOTE | 2019-05-03 17:40 | RADIOLOGY IMAGING REPORT ---
[place] [facility] [place] NAME: Dat Bhatti : 1945 MR: [id number] V: [id number] EXAM DATE: ORDERING PHYSICIAN: JACINTO JOHNSON TECHNOLOGIST: Location: [facility] Patient: Dat Bhatti : 1945 Visit/Account:[id number] Date of Sevice: 05/03/2019 Venous Doppler ultrasound right upper extremity Indication: Swelling. Comparison: None available. Findings: There is a occluding thrombus seen in the right internal jugular vein. This is in the entir e portion visualized. There is normal blood flow to the right subclavian vein. There is normal compressibility and blood flow identified within the right axillary vein, brachial ve ins and cephalic veins. There is a occluding thrombus seen in the basilic vein from the proximal distal aspect. No appreciabl e blood flow or compressibility. Subcutaneous tissues are unremarkable. IMPRESSION: 1. Occluding thrombus seen in the visualized right internal jugular vein. This is not appreciated on the CT scan neck on 11/04/2018. 2. Superficial thrombophlebitis of the basilic vein. I called report to JACINTO JOHNSON at 05/03/2019 5:33 PM. Report Dictated By: J Carlos Richey at 05/03/2019 5:29 PM Report E-Signed By: J Carlos Richey at 05/03/2019 5:34 PM WSN:[id number]
--- NOTE | 2019-05-03 18:14 | RADIOLOGY IMAGING REPORT ---
FACILITY: [facility] [place] PATIENT NAME: Dat Bhatti : 1945 MR: [id number] V: [id number] EXAM DATE: ORDERING PHYSICIAN: JACINTO JOHNSON TECHNOLOGIST: Location: [facility] Patient: Dat Bhatti : 1945 Visit/Account:[id number] Date of Sevice: 05/03/2019 US SOFT TISSUE NON-SPECIFIC INDICATION: ] Right neck swelling. Abnormality around the port. COMPARISON: None available FINDINGS: Ultrasound evaluation the area concern in the right neck adjacent to the port. There is a ill-defined lobular heterogeneous mass with internal blood flow. This mass measures at least 5.1 x 2 .8 x 3.7 cm. No other focal abnormality. IMPRESSION: 5.1 cm heterogeneous lobular vascular mass in the area concern. This is likely secondary to a abnormal enlarged lymph node or a mass/tumor. Report Dictated By: J Carlos Richey at 05/03/2019 6:07 PM Report E-Signed By: J Carlos Richey at 05/03/2019 6:09 PM WSN:[id number]
== END ==
LOC: US 15:36
PROVIDERS: ATTEND Nurse Practitioner
DX: R93.5 Abnormal findings on diagnostic imaging of other abdominal regions, including retroperitoneum (principal); I82.C11 Acute embolism and thrombosis of right internal jugular vein; I82.611 Acute embolism and thrombosis of superficial veins of right upper extremity
CPT/HCPCS: 76999

== ENCOUNTER → 2019-05-03 | Outpatient (RCR) | payer MEDICARE, OTHER ==
[2019-02-02 09:25] VITALS: BP 116/82
[2019-02-02] MEDS: LIDOCAINE/SOD BICARB 8.4% SYR ID PRN (09:27)
[2019-02-02] MEDS: HEPARIN FLSH (PORT) 500 UN/5ML IVP PRN (09:27)
[2019-02-02 09:30] LABS: PLATELET COUNT, AUTOMATED 224 K/uL (150-450)
--- NOTE | 2019-02-02 13:23 | ONCOLOGY FOLLOW UP NOTE ---
EVENT DATE: February 02, 2019 CHIEF COMPLAINT Followup for head and neck cancer. HISTORY OF PRESENT ILLNESS Patient is a 73-year-old gentleman seen today for followup. He has not received IV fluid hydration through our office in a while now. He reports eating and drinking well as does his , who is his primary caregiver, as patient does have history of dementia and difficulty with memory loss as well as PTSD. He had his PEG tube removed by Dr. Quiñones on January 25, 2019. He is now eating soft foods and is "trying to drink more water". He does drink a lot of coffee per his . His weight has increased a couple of kilograms since his last visit. He continues to experience some mild throat discomfort but overall is feeling improved. He no longer has any erythema on his neck. Patient and his believe that he may have had some thrush recently and was started on a prescription for Diflucan. He is two days into his prescription and both patient and tell me that this is feeling better. He is trying to exercise more in the form of walking. He does have significant xerostomia. Patient's tells me he has quite a few medications for his xerostomia given to him by his dentist, including solutions, pastes and lozenges, but he doesn't like to use them. ONCOLOGY HISTORY Patient presented in August 2018 with a palpable lymph node in his right neck. CT scan on September 07, 2018, showed a 3.1 x 2.2 cm mass in the posterior oropharynx with multiple enlarged lymph nodes along the right neck up to 1.1 cm. There was reportedly a right intraparotid lymph node as well. Underwent tonsillectomy on September 10, 2018. Surgical pathology revealed a 3.5 cm primary with extension to the margin, but no lymphovascular or perineural invasion. 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 PET/CT scan in [place] on September 21, 2018, showed a hypermetabolic mass in the right base of the tongue measuring 1.7 cm with an SUV of 12.3. There was a hypermetabolic right intraparotid lymph node with an SUV of 7.6 and additional lymph nodes along the jugular chain anteriorly and posteriorly extending into the right supraclavicular fossa. No evidence of hypermetabolic metastatic disease. Began concurrent chemoradiation on October 11, 2018. Completed six cycles of weekly cisplatin on November 17, 2018. Completed radiation on December 03, 2018. PEG tube was removed on January 25, 2019. PAST MEDICAL HISTORY 1. Squamous cell carcinoma of the oropharynx, September 2018, status post right tonsillectomy. 2. 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 3. Hyperlipidemia. MEDICATIONS 1. Dexamethasone. 2. Compazine. 3. Lorazepam. 4. Zofran. ALLERGIES No known drug allergies. FAMILY HISTORY Lung cancer in his sister. No other malignancies. SOCIAL HISTORY Patient is . He has one son. He is retired. He does not smoke. REVIEW OF SYSTEMS CONSTITUTIONAL: Patient denies any recent fevers, chills or night sweats. HEENT: He denies any vision changes or tinnitus. He continues to have some general throat discomfort and some mild dysphagia but no odynophagia. He believes he recently had an episode of thrush, although this is improving with Diflucan. He is eating soft foods well and is drinking normally. NECK: Redness to the neck has resolved. No neck pain. CARDIOVASCULAR: He denies any chest pain. No syncope or presyncope. LUNGS: He denies any shortness of breath, cough, sputum production or hemoptysis. No pleuritic chest pain. GI: He denies any abdominal pain. No nausea or vomiting, constipation, diarrhea, bright red blood per rectum or melena. : He denies any dysuria, hematuria or genitourinary discharge. ENDOCRINE: He denies any symptoms. MUSCULOSKELETAL: He denies any focal areas of pain. NEURO: He denies any headaches or seizure like activity. No paresthesias. The remainder of a 12-point review of systems is performed today and is otherwise negative. PHYSICAL EXAMINATION VITAL SIGNS: Weight 76.2 kg, up from 75.7 on December 27, 2018. Temperature 97.8 degrees Fahrenheit, pulse 73, R 16, BP 116/82, oxygen saturation 94% on room air. GENERAL: This is a pleasant, 73-year old male who appears well-developed, well- nourished and is in no acute distress. HEAD: Normocephalic, atraumatic. EYES: Sclerae anicteric. ENT/MOUTH: Moist mucous membranes. Mildly erythematous posterior tongue but no suspicious plaques or exudates. Posterior pharynx is only mildly erythematous. No other suspicious lesions. NECK: Supple. No palpable adenopathy. No JVD. No further erythema. This has resolved. LUNGS: Clear breath sounds to auscultation bilaterally. No wheezes, rales or rhonchi. Chest expansion is symmetrical. CARDIOVASCULAR: Regular rate and rhythm. No murmurs or gallops. PSYCH: Mood and affect are appropriate. Patient does have significant memory loss. NEURO: Patient is awake, alert, oriented x2 at least. He has significant memory loss noted above. No gross focal or sensory motor deficits. EXTREMITIES: No edema. No clubbing or cyanosis. MUSCULOSKELETAL: Gait is unremarkable. LABORATORY CBC today: WBC 4.7, ANC 3.6, hemoglobin 12.9, hematocrit 39.1%, platelets 224,000. CMP today: Sodium 138, potassium 3.8, serum creatinine normal at 0.80, glucose mildly elevated at 111, calcium 9.0, magnesium 2.0, normal. LFTs all normal to include normal AST at 33, normal ALT at 23, alkaline phosphatase normal at 67. Total bilirubin normal at 0.2. Total protein normal at 6.9 with normal albumin of 4.0. 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 Began concurrent chemoradiation with weekly cisplatin on October 11, 2018. Completed six cycles of weekly cisplatin on November 17, 2018. Completed radiation on December 03, 2018. PEG tube was removed on January 25, 2019. PLAN 1. Squamous cell carcinoma of the right tonsil. Patient completed chemoradiation on December 03, 2018. His toxicities have now resolved. He no longer requires IV fluid hydration and has had his PEG tube removed. He is eating and drinking solids well, although does try to stick to more softer foods. 2. Throat discomfort: Persists, although mild. No odynophagia and only mild dysphagia. He still has significant xerostomia and is aware that this could be chronic and residual from prior treatment. Discussed that he should be using his oral rinses given to him by his dentist, the lozenges or the dental paste. He verbalized that he will try to use more of these at home. 3. Oral Wendy: May have been worse a couple of days ago, although we did start patient on prescription with Diflucan and this has improved per patient and his . Examination does not reveal any significant or concerning areas and there is only mild erythema at the posterior pharynx. Instructed him to complete the remainder of his Diflucan prescription. Discussed good oral care. 4. Weight: Patient's weight is up almost 2 kg. Discussed the importance of small frequent meals, protein and informed that this albumin has been stable. 5. Exercise: Discussed the importance of trying to be more consistent and increasing light walks. Patient's is concerned about decreasing muscle mass, which certainly has occurred given his weight loss throughout treatment. He may slowly increase exercise to include some more weightbearing exercise. 6. Offered referral to physical therapy, although patient's wants to hold off on this for now and try increasing their walking routines. was concerned that his balance seemed a bit off when he was being weighed today, although this is largely unremarkable on examination. Discussed the importance of adequate hydration, nutrition and exercise, which can certainly affect gait. She will notify us if she feels that this has worsened and we can certainly refer to physical therapy at that time. 7. Patient is scheduled to followup with Dr. Jordan next week and he will keep his scheduled followup. BLADIMIR
[2019-03-09] MEDS: LIDOCAINE/SOD BICARB 8.4% SYR ID PRN (09:02)
[2019-03-09] MEDS: HEPARIN FLSH (PORT) 500 UN/5ML IVP PRN (09:02)
[2019-03-09 09:11] LABS: PLATELET COUNT, AUTOMATED 219 K/uL (150-450)
[2019-03-09 09:15] VITALS: BP 125/95
--- NOTE | 2019-03-10 09:51 | ONCOLOGY FOLLOW UP NOTE ---
EVENT DATE: March 09, 2019 CHIEF COMPLAINT Followup for head and neck cancer. HISTORY OF PRESENT ILLNESS Patient is a 73-year-old gentleman seen today for followup. He reports eating and drinking well as does his , his primary caregiver. Patient has a history of dementia and difficulty with memory loss as well as PTSD. He had his PEG tube removed by Dr. Quiñones on January 25, 2019. He reports that he is eating foods quite well and is drinking water well. He drinks a lot of coffee. He believes that his appetite is good. He does still have some mild throat discomfort. He does have to refrain from spicy foods as that irritates his mouth. He is not using his mugq-aed-eoexzsg solutions and lozenges for dry mouth and still has significant xerostomia. At this last visit, he had just refilled a prescription for Diflucan. His is extremely concerned that maybe he has thrush again. He denies any changes since his last visit to include no fevers, night sweats, infections. His does believe that an area in the mid anterior neck appeared swollen a couple of weeks ago but today she reports this has come down. She tells me it looks like his skin is loose there. ONCOLOGY HISTORY Patient presented in August 2018 with a palpable lymph node in his right neck. CT scan on September 07, 2018, showed a 3.1 x 2.2 cm mass in the posterior oropharynx with multiple enlarged lymph nodes along the right neck up to 1.1 cm. There was reportedly a right intraparotid lymph node as well. Underwent tonsillectomy on September 10, 2018. Surgical pathology revealed a 3.5 cm primary with extension to the margin, but no lymphovascular or perineural invasion. 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 PET/CT scan in [place] on September 21, 2018, showed a hypermetabolic mass in the right base of the tongue measuring 1.7 cm with an SUV of 12.3. There was a hypermetabolic right intraparotid lymph node with an SUV of 7.6 and additional lymph nodes along the jugular chain anteriorly and posteriorly extending into the right supraclavicular fossa. No evidence of hypermetabolic metastatic disease. Began concurrent chemoradiation on October 11, 2018. Completed six cycles of weekly cisplatin on November 17, 2018. Completed radiation on December 03, 2018. PEG tube was removed on January 25, 2019. PAST MEDICAL HISTORY 1. Squamous cell carcinoma of the oropharynx, September 2018, status post right tonsillectomy. 2. 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 3. Hyperlipidemia. MEDICATIONS 1. Dexamethasone. 2. Compazine. 3. Lorazepam. 4. Zofran. ALLERGIES No known drug allergies. FAMILY HISTORY Lung cancer in his sister. No other malignancies. SOCIAL HISTORY Patient is . He has one son. He is retired. He does not smoke. REVIEW OF SYSTEMS CONSTITUTIONAL: Patient denies any recent fevers, chills or night sweats. HEENT: He denies any vision changes or tinnitus. He continues to have some significant xerostomia but is not using his lozenges or solutions. He has some general tongue discomfort but no dysphagia or odynophagia. This has improved. NECK: No neck pain. His believes that his mid anterior neck looked swollen a couple of weeks ago, perhaps a lymph node but reports this has since resolved. She feels like his skin appears quite loose there. CARDIOVASCULAR: He denies any chest pain. No syncope or presyncope. LUNGS: He denies any shortness of breath, cough, sputum production or hemoptysis. No pleuritic chest pain. GI: He denies any abdominal pain. No nausea or vomiting, constipation, diarrhea, bright red blood per rectum or melena. ENDOCRINE: He denies any symptoms. MUSCULOSKELETAL: He denies any focal areas of pain. NEURO: He denies any headaches or seizure like activity. No paresthesias. The remainder of a 12-point review of systems is performed today and is otherwise negative. PHYSICAL EXAMINATION VITAL SIGNS: Weight 74.4 kg, down from 76.2 kg. T 97.4, P 59, R 16, BP 125/95, oxygen saturation 94% room air. Currently rates pain level at "0/10". Currently rates fatigue level at "5-6/10". GENERAL: This is a pleasant, 73-year old male who appears well-developed, well- nourished and is in no acute distress. HEAD: Normocephalic, atraumatic. EYES: Sclerae anicteric. ENT/MOUTH: Dry mucous membranes. He does suffer from xerostomia. Posterior pharynx is only mildly erythematous, as is the posterior tongue. There are some raised areas on the posterior tongue but no plaque or exudate. No thrush. NECK: Supple. No palpable adenopathy, although there is some mild fibrosity noted to the neck. No JVD. No further erythema. This has resolved. LUNGS: Clear breath sounds to auscultation bilaterally. No wheezes, rales or rhonchi. Chest expansion is symmetrical. CARDIOVASCULAR: Regular rate and rhythm. No murmurs or gallops. PSYCH: Mood and affect are appropriate. Patient does have significant memory loss. NEURO: Patient is awake, alert, oriented x2 at least. He has significant memory loss noted above. No gross focal or sensory motor deficits. EXTREMITIES: No edema. No clubbing or cyanosis. MUSCULOSKELETAL: Gait is unremarkable. LABORATORY CBC today: WBC 4.8, ANC 3.6, hemoglobin 14.0, hematocrit 41.4%, platelets 219,000. AST mildly elevated at 37, up from 33 previously on February 02, 2019. ALT normal at 30. Alkaline phosphatase normal at 65. Albumin normal at 4.1 with normal protein level and normal total bilirubin at 0.3. IMAGING Whole body PET/CT at [facility] on November 18, 2018: 1. Apparent resolution since the last PET/CT of hypermetabolism in the right base of the tongue and hypermetabolic neck lymph nodes, suggesting an excellent response to therapy there. 2. No current PET evidence of malignancy. 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 Began concurrent chemoradiation with weekly cisplatin on October 11, 2018. Completed six cycles of weekly cisplatin on November 17, 2018. Completed radiation on December 03, 2018. PEG tube was removed on January 25, 2019. 1. Squamous cell carcinoma of the right tonsil. Patient completed chemoradiation on December 03, 2018. Toxicities have now resolved. He is eating and drinking well. He no longer has a PEG tube. He still eats a lot of softer foods. 2. Throat discomfort: Persists, although mild. He denies any dysphagia or odynophagia. He has a mildly erythematous posterior pharynx but no thrush. He has significant xerostomia, which we discussed is residual from prior treatment. I again counseled him on good oral mouth care and instructed him that it would be in his best interest to use the lozenges, solutions and dental paste to help with his xerostomia. Patient tells me that he will try to use these. 3. Oral Wendy, resolved. At last visit, was on Diflucan, which he has now completed. 4. Nutrition and hydration: Patient's weight fluctuates by about 2 kg. Currently, he is down 2 kg. We again discussed the importance of small frequent meals, protein, exercise and hydration. He reports that this appetite is quite good. 5. Reminded that physical therapy is still an option. 6. I have ordered re-staging PET/CT today. I have entered orders to have this specifically compared to his last PET/CT on November 18, 2018. Patient will have this done again at [facility] in [place]. Prior to that, he had a PET/CT on September 21, 2018 in [place]. Area of 's concern to the mid anterior neck was not evident on exam today, although he does have some mild fibrosity noted in the soft tissues of the neck. 7. Patient will return to the clinic in four weeks for followup and we can review imaging results at that time. BLADIMIR
[2019-04-20 13:07] VITALS: BP 106/73
[2019-04-20 14:27] LABS: PLATELET COUNT, AUTOMATED 222 K/uL (150-450)
[2019-04-20] MEDS: LIDOCAINE/SOD BICARB 8.4% SYR ID PRN (14:29)
[2019-04-20] MEDS: HEPARIN FLSH (PORT) 500 UN/5ML IVP PRN (14:30)
--- NOTE | 2019-04-21 19:30 | ONCOLOGY FOLLOW UP NOTE ---
EVENT DATE: April 20, 2019 CHIEF COMPLAINT Followup for head and neck cancer. HISTORY OF PRESENT ILLNESS Patient is a 73-year old male who is seen today in followup. Overall, he feels well. His weight is stable. It is sometimes difficult for him to answer specific questions but his believes that he is not having any issues swallowing. He is not able to eat any spicy foods but otherwise denies any new complaints. He has some mild dry mouth but this has also improved over time. He and his present to discuss the results of the recent PET scan. ONCOLOGY HISTORY Patient presented in August 2018 with a palpable lymph node in his right neck. CT scan on September 07, 2018, showed a 3.1 x 2.2 cm mass in the posterior oropharynx with multiple enlarged lymph nodes along the right neck up to 1.1 cm. There was reportedly a right intraparotid lymph node as well. Underwent tonsillectomy on September 10, 2018. Surgical pathology revealed a 3.5 cm primary with extension to the margin, but no lymphovascular or perineural invasion. 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 PET/CT scan in [place] on September 21, 2018, showed a hypermetabolic mass in the right base of the tongue measuring 1.7 cm with an SUV of 12.3. There was a hypermetabolic right intraparotid lymph node with an SUV of 7.6 and additional lymph nodes along the jugular chain anteriorly and posteriorly extending into the right supraclavicular fossa. No evidence of hypermetabolic metastatic disease. Began concurrent chemoradiation on October 11, 2018. Completed six cycles of weekly cisplatin on November 17, 2018. Completed radiation on December 03, 2018. PET scan April 15, 2019 showed likely recurrence of disease in the right tonsillar fossa with multiple hypermetabolic lymph nodes in the chest as well as evidence of interval osseous metastases. PAST MEDICAL HISTORY 1. Squamous cell carcinoma of the oropharynx, September 2018, status post right tonsillectomy. 2. 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 3. Hyperlipidemia. FAMILY HISTORY Lung cancer in his sister. No other malignancies. SOCIAL HISTORY Patient is . He has one son. He is retired. He does not smoke. MEDICATIONS None. ALLERGIES No known drug allergies. REVIEW OF SYSTEMS A 12-point review of systems is performed and is negative except as stated above. PHYSICAL EXAMINATION VITAL SIGNS: Weight 76 kg. BP 106/73, P 76, R 16, temp 97.8, O2 sat 95%. GENERAL: Patient is a well-developed, well-nourished male in no acute distress. HEAD: Normocephalic, atraumatic. EYES: Sclerae anicteric. MOUTH: Slightly dry mucous membranes. No mucositis or candidiasis. NECK: Supple. No palpable adenopathy. He does have some mild lymphedema under his chin. LUNGS: Clear bilaterally. CARDIOVASCULAR: Heart rate regular, 76 per minute. EXTREMITIES: No edema. NEUROLOGIC: Nonfocal. LABORATORY CBC today reveals WBC 5.8, hemoglobin 13.8, hematocrit 40.2, platelets 222,000. CMP is within normal limits except for minimally elevated AST of 45. TSH is 242. IMPRESSION The patient is a 73-year-old male with stage CAROL human papilloma virus positive squamous cell carcinoma of the oropharynx. Began concurrent chemoradiation with weekly cisplatin on October 11, 2018 and completed six cycles of weekly cisplatin on November 17, 2018. Completed radiation on December 03, 2018. PLAN 1. Squamous cell carcinoma of the right tonsil. Overall, he feels well and his weight has been stable. However, we reviewed his PET scan from April 15, 2019, which unfortunately shows interval development of focal hypermetabolism in the right tonsillar fossa, concerning for recurrent tumor. There was also strong PET evidence of interval osseous metastases as well as the development of multiple hypermetabolic lymph nodes in the chest that are likely metastatic. He and his are, of course, disappointed by this. I have reviewed this with Dr. Perez in Dr. Jordan's absence and recommendation is to begin treatment with pembrolizumab. I briefly explained that immunotherapy was a different treatment than chemotherapy and radiation. They will receive further teaching once the medication has been approved. Baseline labs including TSH today were within normal limits. He will begin treatment April 27, 2019. A total of 40 minutes was spent with patient and his today, greater than 75% of which was [id number] counseling. BLADIMIR
[2019-04-27] MEDS: HEPARIN FLSH (PORT) 500 UN/5ML IVP PRN (14:10)
[2019-04-27] MEDS: LIDOCAINE/SOD BICARB 8.4% SYR ID PRN (14:10)
[2019-04-27 14:11] VITALS: BP 116/86
[2019-04-27 16:11] VITALS: BP 121/80
--- NOTE | 2019-04-28 09:05 | ONCOLOGY CHEMO TEACHING ---
DIAGNOSIS Metastatic head and neck cancer. The patient and his are seen today for chemotherapy teaching. Dr. Llamas also met with them. A total of 60 minutes was spent with them, 100% of which was [id number] counseling. HISTORY OF PRESENT ILLNESS The patient is a 73-year-old male who was seen today to begin treatment with pembrolizumab. Unfortunately, most recent PET scan showed recurrent with metastatic disease in both the chest as well as bone. He generally feels well. His relates that he seemed uncomfortable with sitting on a hard seat. Prince does not remember this exactly, but I have asked them both to monitor this as radiation could be considered if necessary. He is eating well. He is no longer eating any spicy foods, but his weight has been stable. He has some dry mouth, but this is slowly improving. ONCOLOGY HISTORY Patient presented in August 2018 with a palpable lymph node in his right neck. CT scan on September 07, 2018, showed a 3.1 x 2.2 cm mass in the posterior oropharynx with multiple enlarged lymph nodes along the right neck up to 1.1 cm. There was reportedly a right intraparotid lymph node as well. Underwent tonsillectomy on September 10, 2018. Surgical pathology revealed a 3.5 cm primary with extension to the margin, but no lymphovascular or perineural invasion. 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 PET/CT scan in [place] on September 21, 2018, showed a hypermetabolic mass in the right base of the tongue measuring 1.7 cm with an SUV of 12.3. There was a hypermetabolic right intraparotid lymph node with an SUV of 7.6 and additional lymph nodes along the jugular chain anteriorly and posteriorly extending into the right supraclavicular fossa. No evidence of hypermetabolic metastatic disease. Began concurrent chemoradiation on October 11, 2018. Completed six cycles of weekly cisplatin on November 17, 2018. Completed radiation on December 03, 2018. PET scan April 15, 2019 showed likely recurrence of disease in the right tonsillar fossa with multiple hypermetabolic lymph nodes in the chest as well as evidence of interval osseous metastases. Began pembrolizumab on 04/27/19. PAST MEDICAL HISTORY 1. Squamous cell carcinoma of the oropharynx, September 2018, status post right tonsillectomy. 2. 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 3. Hyperlipidemia. FAMILY HISTORY Lung cancer in his sister. No other malignancies. SOCIAL HISTORY Patient is . He has one son. He is retired. He does not smoke. MEDICATIONS None. ALLERGIES No known drug allergies. DISCUSSION 1. A total of 60 minutes was spent in counseling today, 100% of which was face to face. At today's chemotherapy teaching session we discussed his diagnosis as well as the planned chemotherapy regimen and toxicities associated with pembrolizumab. Handouts of each drug were provided and reviewed in detail. 2. Side effects and toxicities of immunotherapy agents included, but were not limited to: A. GI side effects. Discussed the possibility of colitis/significant diarrhea associated with this drug. We recommended he take Imodium up to 8 a day, but notify us if this were not controlled within 1 to 2 days. If he were to have constipation, recommended MiraLAX. B. Pulmonary. Reviewed that this medication can cause pneumonitis. He will notify us if he develops cough, wheezing, or excessive shortness of breath. C. Endocrinopathies. Thyroid function tests done on 04/20/19 were within normal limits and will be repeated routinely. He will be monitored for any symptoms of adrenal insufficiency or thyroid issues. D. Hepatitis. Reviewed that this can cause abnormalities in the liver. LFTs are within normal limits today. CMP will be monitored routinely. He will notify us if he develops any upper abdominal pain, light colored stools or yellow skin/eyes. E. Fatigue. Discussed that this is one of the more common side-effects of treatment. I have encouraged him to remain as active as possible, taking frequent rests as needed. F. Nephritis. Discussed that this can effect the kidneys. CMP will be checked routinely. BUN and creatinine are within normal limits today. He will notify us if he he develops any issues related to urinary frequency or lower extremity swelling. 3. I have instructed the patient to call our office if he is prescribed any new medications. It is recommended that multiple supplements or herbal medications may not be taken as these may interfere with the action of the therapy. 4. Discussed dietary issues associated with therapy. He will be referred to a protection [employer] industrial plant if needed and his weight will be monitored. 5. Office contact information ([phone]) is given. I have encouraged the patient to call with any issues regarding treatment. As above, Dr. Llamas also met with the patient and his . We reviewed his PET scan in some detail. Time was given for questions to be asked and answered and they feel comfortable with proceeding with today's treatment. Dr. Llamas is considering repeating a PET scan in 3 to 4 months, but we will evaluate the need as time progresses. He will receive cycle #1 today and will be seen again in 3 weeks or earlier if there is a problem. MTDD
[~2019-05-03] MED LIST changes: +ALTEPLASE RECOMB 2 MG VIAL IVP PRN; +DEXTROSE 5%(*) 100 ML BAG 100 ML IVPB PRN; +NS(*) 0.9% 100 ML BAG 100 ML IVPB PRN; +NS(*) 0.9% 250 ML BAG 250 ML IVPB PRN; +NS(*) 0.9% 500 ML BAG 500 ML IV PRN; +PEMBROLIZUMAB 100 MG/4 ML SDV 200 MG in NS(*) 0.9% 50 ML BAG 50 ML IV ONE; +WATER FOR INJ,STERILE 20 ML IVP PRN
[2019-05-03 13:34] VITALS: BP 114/79
--- NOTE | 2019-05-04 03:56 | ONCOLOGY FOLLOW UP NOTE ---
EVENT DATE: May 03, 2019 CHIEF COMPLAINT Followup for metastatic head and neck cancer. HISTORY OF PRESENT ILLNESS Patient is a 73-year-old male who is seen today as a work-in. He began treatment with pembrolizumab on 04/27/19. He has developed an increasing rash on his right supraclavicular area/neck for the past three days. It is not painful or pruritic. He has difficulty describing this, but we are able to obtain information from his . He denies any other new complaints and feels he tolerated his first treatment well. ONCOLOGY HISTORY Patient presented in August 2018 with a palpable lymph node in his right neck. CT scan on September 07, 2018, showed a 3.1 x 2.2 cm mass in the posterior oropharynx with multiple enlarged lymph nodes along the right neck up to 1.1 cm. There was reportedly a right intraparotid lymph node as well. Underwent tonsillectomy on September 10, 2018. Surgical pathology revealed a 3.5 cm primary with extension to the margin, but no lymphovascular or perineural invasion. 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 PET/CT scan in [place] on September 21, 2018, showed a hypermetabolic mass in the right base of the tongue measuring 1.7 cm with an SUV of 12.3. There was a hypermetabolic right intraparotid lymph node with an SUV of 7.6 and additional lymph nodes along the jugular chain anteriorly and posteriorly extending into the right supraclavicular fossa. No evidence of hypermetabolic metastatic disease. Began concurrent chemoradiation on October 11, 2018. Completed six cycles of weekly cisplatin on November 17, 2018. Completed radiation on December 03, 2018. PET scan April 15, 2019, showed likely recurrence of disease in the right tonsillar fossa with multiple hypermetabolic lymph nodes in the chest as well as evidence of interval osseous metastases. Began pembrolizumab on 04/27/19. PAST MEDICAL HISTORY 1. Squamous cell carcinoma of the oropharynx, September 2018, status post right tonsillectomy. 2. 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 3. Hyperlipidemia. FAMILY HISTORY Lung cancer in his sister. No other malignancies. SOCIAL HISTORY Patient is . He has one son. He is retired. He does not smoke. MEDICATIONS Eliquis. ALLERGIES No known drug allergies. REVIEW OF SYSTEMS A 12-point review of systems is performed and is negative except as stated above. PHYSICAL EXAMINATION VITAL SIGNS: Weight 75.5 kg, BP 114/79, P 65, R 16, temp 98.9, O2 sat 96%. GENERAL: Patient is a well-developed, well-nourished male in no acute distress. HEAD: Normocephalic, atraumatic. EYES: Sclerae anicteric. MOUTH: Slightly dry mucous membranes. No lesions noted. NECK: Supple. No palpable supraclavicular or cervical adenopathy. He does have a darkish red area of thickened skin. This blanches but is not warm to the touch. No evidence of maculopapular rash or blistering. Of note, he has multiple subcutaneous nodules in his right axilla with a large right axillary node. LUNGS: Clear bilaterally. CARDIOVASCULAR: Heart rate regular, 65 per minute. EXTREMITIES: No edema. NEURO: Nonfocal. 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 Began concomitant chemoradiation with weekly cisplatin on 10/11/18 and completed six cycles of cisplatin on 10/17/19. Completed radiation on 12/03/18. PET scan on 04/15/19 showed likely recurrence of disease in the right tonsillar fossa, with multiple hypermetabolic lymph nodes in the chest as well as evidence of interval osseous metastases. Began pembrolizumab on 04/27/19. PLAN 1. Recurrent squamous cell carcinoma of the right oropharynx. Patient is seen one week after receiving his first cycle of pembrolizumab. Overall, he tolerated this well. 2. Right neck. Patient was examined by myself as well as Dr. De Oliveira. Punch skin biopsy will be done per Dr. Chinchilla tomorrow morning to rule out the possibility of inflammatory disease. Will await the pathology report. 3. Right IJ clot. He was sent for an ultrasound of the right neck and was noted to have a large right IJ clot. He will begin Eliquis 10 mg b.i.d. for seven days beginning tomorrow, approximately two hours after his biopsy, and then transition to Eliquis 5 mg b.i.d. 3. Follow up as scheduled for continued care, earlier if there is a problem. MTDD
== END ==
LOC: ONC 02-02 08:31 → SPU 03-09 08:57 → ONC 04-20 12:59
PROVIDERS: ATTEND Internal Medicine Medical Oncology
DX: Z85.89 Personal history of malignant neoplasm of other organs and systems (principal); Z92.21 Personal history of antineoplastic chemotherapy; Z92.3 Personal history of irradiation; R13.10 Dysphagia, unspecified; K11.7 Disturbances of salivary secretion
CPT/HCPCS: 36591; 83735; 84439; 84443; 84481; 85025; 85027; 96365; 96413; 96523; G0463; J1642; J7050; J9271; 82040; 82247; 82310; 82374; 82435; 82565; 82947; 84075; 84132; 84155; 84295; 84450; 84460; 84520; 99212